=== PATIENT | female | born 1980 | race Caucasian/White ===

== ENCOUNTER 2019-12-21 22:07 | Emergency (ER) | payer SELFPAY ==
[2019-12-21 22:20] VITALS: BP 109/44; PULSE 108; TEMP 97.9; BMI 27.4
--- NOTE | 2019-12-21 22:29 | PDOC ---
History of Present Illness - General Chief Complaint: Pain Stated Complaint: SYNCOPE Time Seen by Provider: 12/21/19 22:28 - History of Present Illness Initial Comments: 12/21/19 23:09 39 y/o F with no significant PMH who presents to the ED due worsening external vaginal pain due to bartholin cyst and nausea. Pt was seen at [facility] and discharged on ciprofloxacin and motrin. This morning when her pain increased she decided to take double of her motrin and cipro in hope to accelerate symptom relief. She denies any F/C or change in urination. She does endorse difficulty with BM due to vaginal pain. Pt explains that she had prior episode in the past often self resolving; however this one episode worsened. NO prior STDs. PSH: 3 C sections Social Hx: active smoker 1-2 cig a day PE: Gen: mild distress CHEST: vesicular breath sounds b/l HEART: RRR no MRG ABDOMEN: +BS, NTND EXTREMITIES: 2+ pulses, no edema genital exam: large fluctuant mass in the left labia majora with surrounding erythema and significant tenderness on light touch Assessment: bartholyn cyst abscess Plan: I&D, with word catheter insertion + 1 dose of bactrim with 7 day course BID on discharge zofran for nausea, tylenol for pain. Past History - Past Medical History Allergies/Adverse Reactions: Allergies Allergy/AdvReac Type Severity Reaction Status Date / Time No Known Allergies Allergy Verified 12/21/19 22:12 Home Medications: Ambulatory Orders Ondansetron [Zofran -] 4 mg PO Q6H PRN #15 tablet 12/22/19 Sulfamethoxazole/Trimethoprim [Bactrim Ds -] 1 tab PO BID #14 tablet 12/22/19 COPD: No - Psycho Social/Smoking Cessation Hx Smoking History: Never smoked Review of Systems - Review of Systems Constitutional: No: Chills, Fever HEENTM: No: Recent change in vision Respiratory: No: Cough, Shortness of Breath Cardiac (ROS): No: Chest Pain, Palpitations ABD/GI: Yes: Nausea, Vomiting : Yes: Pain. No: Burning, Dysuria, Discharge Musculoskeletal: No: Joint Swelling Integumentary: No: Change in Color Neurological: No: Headache Endocrine: No: Change in Weight *Physical Exam - Vital Signs Last Vital Signs Temp Pulse Resp BP Pulse Ox 97.9 F 108 H 18 109/44 L 97 12/21/19 22:08 12/21/19 22:08 12/21/19 22:08 12/21/19 22:08 12/21/19 22:08 - Physical Exam General Appearance: Yes: Nourished, Mild Distress HEENT: positive: EOMI, JONATHON, Normal Voice Neck: positive: Trachea midline, Supple Respiratory/Chest: positive: Lungs Clear, Normal Breath Sounds Cardiovascular: positive: Regular Rhythm, Regular Rate, S1, S2 Female Pelvic Exam: positive: Bartholin mass Gastrointestinal/Abdominal: positive: Normal Bowel Sounds, Soft Rectal Exam: positive: deferred Musculoskeletal: negative: CVA Tenderness Extremity: positive: Normal Capillary Refill Integumentary: positive: Normal Color, Dry, Warm Neurologic: positive: copra processor II-XII NML intact, Fully Oriented, Alert, Normal Mood/ Affect, Motor Strength 5/5. negative: Sensory Deficit Discharge - Discharge Information Problems reviewed: Yes Clinical Impression/Diagnosis: Bartholin's gland abscess Condition: Improved Disposition: HOME - Admission No - Additional Discharge Information Prescriptions: Ondansetron [Zofran -] 4 mg PO Q6H PRN #15 tablet PRN Reason: Nausea And/Or Vomiting Sulfamethoxazole/Trimethoprim [Bactrim Ds -] 1 tab PO BID #14 tablet - Follow up/Referral - Patient Discharge Instructions Patient Printed Discharge Instructions: DI for Bartholin Gland Cyst Additional Instructions: You came into the ED because of non improvement of bartholin cyst despite antibiotics. We drained your cyst/ abscess and gave you pain meds and your symptom improved. Please continue to take bactrim twice a day by mouth for the next 7 days Please take zofran 4mg every 6 hours by mouth as needed If you begin to experience numbness, bleeding, fever/chills, chest pain, worsening genital symptoms please return to the emergency room immediately. - Post Discharge Activity Work/Back to School Note: Back to Work
[2019-12-21] MEDS ORDERED: ACETAMINOPHEN 1000 MG/100 ML VIAL (NON FORMULARY) IVPB ONE (23:08)
[2019-12-21] MEDS ORDERED: ONDANSETRON 4 MG/2 ML VIAL IVPUSH ONE (23:08)
[2019-12-21] MEDS ORDERED: LIDOCAINE HCL 2% (50ML VIAL) SQ ONE ×2 (23:15→23:17)
[2019-12-21] MEDS ORDERED: ACETAMINOPHEN INJECTION 100 ML IVPB ONE (23:21)
[2019-12-21] MEDS ORDERED: LIDOCAINE HCL 2% (20ML MULTI-DOSE VIAL) ONE (23:22)
[2019-12-21] MEDS ORDERED: ONDANSETRON 4 MG/2 ML VIAL ONE (23:22)
[2019-12-22] MEDS ORDERED: SULFAMETHOXAZOLE/TRIMETHOPRIM 800MG/160MG D.S. TABLET PO ONE (00:18)
[2019-12-22] MEDS ORDERED: SULFAMETHOXAZOLE/TRIMETHOPRIM 800MG/160MG D.S. TABLET ONE (00:24)
--- NOTE | 2019-12-22 04:05 | PDOC ---
Attending Attestation - Resident Resident Name: JonasJeremieJessica - ED Attending Attestation I have performed the following: I have examined & evaluated the patient, The case was reviewed & discussed with the resident, I agree w/resident's findings & plan, Exceptions are as noted - HPI HPI: 12/22/19 04:04 See resident HPI - Physicial Exam PE: 12/22/19 04:04 Agree with documented exam - Medical Decision Making 12/22/19 04:04 Bartholin gland cyst I&D, vega catheter, abx dc return for re-eval
== END 2019-12-22 02:01 | disposition home or self-care (01) ==
LOC: JER 22:07
PROC: 0U9L00Z Drainage of Vestibular Gland with Drainage Device, Open Approach (ICD-10-PCS; principal; 2019-12-21)
DX: N75.1 Abscess of Bartholin's gland (principal)
CPT/HCPCS: 87070; 87205; 99284-25; J0131

== ENCOUNTER 2019-12-22 17:01 | Inpatient (IN) | payer SELFPAY ==
[~2019-12-22 17:01] MED LIST: PANTOPRAZOLE SODIUM 40 MG VIAL IVPUSH SCH
[2019-12-22] MEDS ORDERED: ONDANSETRON 4 MG/2 ML VIAL IVPUSH ONE ×2 (17:52→23:10)
[2019-12-22] MEDS ORDERED: SODIUM CHLORIDE 1,000 ML IV STA (17:52)
[2019-12-22] MEDS ORDERED: ONDANSETRON 4 MG/2 ML VIAL ONE ×3 (18:39→23:11)
[2019-12-22 19:14] LABS: BASO % 0.3 % (0-2.0); EOS % 0.3 % (0-4.5); HEMATOCRIT 37.2 % (32.4-45.2); HEMOGLOBIN 12.6 GM/dL (10.7-15.3); LYMPH % 12.5 % (8-40); MCH 28.1 pg (25.7-33.7); MCHC 33.7 g/dl (32.0-36.0); MEAN CELL VOLUME 83.3 fl (80-96); MEAN PLT VOLUME 8.3 fl (7.5-11.1); MONO % 7.3 % (3.8-10.2); NEUT % 79.6 % (42.8-82.8); PLATELET COUNT 337 K/MM3 (134-434); RBC 4.47 M/mm3 (3.60-5.2); RDW 14.6 % (11.6-15.6); WHITE BLOOD COUNT 21.3 K/mm3 (4.0-10.0)
--- NOTE | 2019-12-22 20:14 | PDOC ---
History of Present Illness - General Chief Complaint: Weakness Stated Complaint: DECREASED APPETITE Time Seen by Provider: 12/22/19 17:45 History Source: Patient Exam Limitations: No Limitations Past History - Past Medical History Allergies/Adverse Reactions: Allergies Allergy/AdvReac Type Severity Reaction Status Date / Time No Known Allergies Allergy Verified 12/22/19 17:11 Home Medications: Ambulatory Orders Ondansetron [Zofran -] 4 mg PO Q6H PRN #15 tablet 12/22/19 Sulfamethoxazole/Trimethoprim [Bactrim Ds -] 1 tab PO BID #14 tablet 12/22/19 COPD: No - Psycho Social/Smoking Cessation Hx Smoking History: Current every day smoker Have you smoked in the past 12 months: Yes Number of Cigarettes Smoked Daily: 5 Information on smoking cessation initiated: No Hx Alcohol Use: No Drug/Substance Use Hx: No *Physical Exam - Vital Signs Last Vital Signs Temp Pulse Resp BP Pulse Ox 97.8 F 87 18 110/65 100 12/22/19 17:08 12/22/19 17:08 12/22/19 17:08 12/22/19 17:08 12/22/19 17:08 - Physical Exam General Appearance: No: Apparent Distress Respiratory/Chest: positive: Lungs Clear, Normal Breath Sounds. negative: Respiratory Distress Cardiovascular: positive: Regular Rhythm, Regular Rate, S1, S2. negative: Murmur Gastrointestinal/Abdominal: positive: Normal Bowel Sounds, Soft. negative: Tender, Distended, Guarding, Rebound Neurologic: positive: Alert ED Treatment Course - LABORATORY CBC & Chemistry Diagram: 12/22/19 18:50 12/22/19 18:50 - ADDITIONAL ORDERS Additional order review: Laboratory Results 12/22/19 18:50 Serum , Qual Negative 12/22/19 18:50 RBC 4.47 MCV 83.3 MCHC 33.7 RDW 14.6 MPV 8.3 Neutrophils % 79.6 Lymphocytes % 12.5 Monocytes % 7.3 Eosinophils % 0.3 Basophils % 0.3 - RADIOLOGY Radiology Studies Ordered: Category Date Time Status ABDOMEN & PELVIS CT WITH CONTR [CT] Stat CT Scan 12/22/19 19:41 Ordered - Medications Given in the ED: ED Medications Discontinued Medications Generic Name Dose Route Start Last Admin Trade Name Freq PRN Reason Stop Dose Admin Sodium Chloride 1,000 mls @ 1,000 mls/hr 12/22/19 17:52 12/22/19 18:35 Normal Saline - IV 12/22/19 18:51 1,000 mls/hr ASDIR STA Administration Ondansetron HCl 4 mg 12/22/19 17:52 12/22/19 18:30 Zofran Injection IVPUSH 12/22/19 17:53 4 mg ONCE ONE Administration Medical Decision Making - Medical Decision Making 39-year-old female with no significant past medical history presents for persistent vomiting from yesterday. Patient was seen yesterday in the ED for Bartholin cyst which was drained and Word catheter was placed. Patient was started on Bactrim yesterday as well as given rx for Zofran. Patient has been unable to keep down anything though despite use of the Zofran. Patient was first seen by Mike dorado at [facility] where she was prescribed Cipro. Patient mentions the vomiting started yesterday after she took 2 tablets of Cipro and 2 tablets of Motrin empty stomach. However, has not yet stopped and unable to keep down liquids. Denies fever, sob, cp, diarrhea, urinary sxs. Patient had BM today. Surgical hx: x3 Labs sent and pending Given IVF and Zofran Multiple episodes of vomiting in ED; Consider SBO? D/W Dr. Alexandre - recommends CT A/P 12/22/19 20:11 Abnormal Lab Results 12/22/19 12/22/19 18:50 18:50 WBC 21.3 H Absolute Neuts (auto) 16.9 H Carbon Dioxide 20 L BUN 26.7 H Creatinine 5.1 H Random Glucose 118 H Magnesium 2.5 H AST 46 H Alkaline Phosphatase 119 H Labs notable for marked leukocytosis Patient also noted with elevated BUN and creatinine, low GFR Patient denies any history of any kidney problems in the past States she has not seen a doctor for a few years Mentions she is still making urine CT scan of the abdomen/pelvis was negative for any acute findings We will admit to the hospital for further evaluation 12/22/19 21:33 Discharge - Discharge Information Problems reviewed: Yes Clinical Impression/Diagnosis: Renal insufficiency Condition: Stable - Admission Yes - Follow up/Referral - Patient Discharge Instructions - Post Discharge Activity
[2019-12-22 20:17] LABS: ALBUMIN 3.5 g/dl (3.4-5.0); BILIRUBIN,TOTAL 0.4 mg/dL (0.2-1); BLOOD UREA NITROGEN 26.7 mg/dL (7-18); CALCIUM 9.2 mg/dL (8.5-10.1); CREATININE 5.1 mg/dL (0.55-1.3); MAGNESIUM 2.5 mg/dL (1.8-2.4); POTASSIUM 4.3 mmol/L (3.5-5.1); TOT PROT 7.2 g/dl (6.4-8.2)
[2019-12-22 21:01] LABS: PLATELET ESTIMATE ADEQUATE
[2019-12-22] MEDS ORDERED: PROCHLORPERAZINE INJECTION 10 MG/2 ML VIAL ONE (23:13)
[2019-12-22] MEDS ORDERED: PROCHLORPERAZINE MALEATE 5 MG TABLET PO PRN (23:15)
[2019-12-22] MEDS ORDERED: SODIUM CHLORIDE 0.9% 500 ML INFUS.BAG IV ONE (23:18)
[2019-12-22] MEDS ORDERED: PROCHLORPERAZINE INJECTION 10 MG/2 ML VIAL IVPB SCH ×2 (23:30→23:41)
[2019-12-22] MEDS ORDERED: PANTOPRAZOLE SODIUM 40 MG/100 ML BAG IVPB ONE (23:39)
[2019-12-22] MEDS ORDERED: VANCOMYCIN 1 GM in D5W (PRE-DOCKED) 1,000 MG/250 ML IVPB ONE (23:45)
[2019-12-22] MEDS ORDERED: AMPICILLIN NA/SULBACTAM NA 1.5 GM in SODIUM CHLORIDE 100 ML IVPB SCH (23:45)
[2019-12-22] MEDS: PANTOPRAZOLE SODIUM 40 MG VIAL IVPUSH SCH (23:47)
--- NOTE | 2019-12-22 23:57 | PN ---
Teaching Attending Note Name of Resident: Feliz Minor ATTENDING PHYSICIAN STATEMENT I saw and evaluated the patient. I reviewed the resident's note and discussed the case with the resident. I agree with the resident's findings and plan as documented. SUBJECTIVE: 39-year-old woman with a history of recurrent Bartholin cysts, tobacco and marijuana smoker, presented on 12/20/2019 to [facility] emergency room for left Barthonian cyst/cellulitis/abscess, prescribed Cipro and ibuprofen and was discharged home. Patient reported taking 2 pills of ciprofloxacin and 2 pills of ibuprofen that same day and shortly after developed multiple episodes of nonbloody vomiting. The next day she came to the emergency room in [facility], left Bartholin abscess status post incision and drainage, sent for culture which is pending. Received Bactrim prescription, return to the emergency room on 12/22/2019 due to persistent vomiting. Patient otherwise does not really follow with any doctors, does not take any medications at home.No Drug allergies that she knows of. OBJECTIVE: Last Vital Signs Temp Pulse Resp BP Pulse Ox 97.8 F 87 18 110/65 100 12/22/19 17:08 12/22/19 17:08 12/22/19 17:08 12/22/19 17:08 12/22/19 17:08 Physical exam showed a woman not in any acute distress, however with intractable vomiting, dry mucous membranes, sclera nonicteric with no pallor. Lungs are clear to auscultation bilaterally, cardiovascular exam was remarkable for S1 plus, S2 plus regular rate and rhythm no murmurs. Abdomen was soft, nontender with normal bowel sounds. External vulva examined with Dr. Lyles, left labia majora erythematous, swollen with no visible discharge. Lower extremities nonedematous, no rash on skin noted. Abnormal Lab Results 12/22/19 12/22/19 18:50 18:50 WBC 21.3 H Absolute Neuts (auto) 16.9 H Carbon Dioxide 20 L BUN 26.7 H Creatinine 5.1 H Random Glucose 118 H Magnesium 2.5 H AST 46 H Alkaline Phosphatase [address] of abdomen pelvis without contrast was reviewed. No definite CT findings of acute pathology identified. Cholelithiasis, small nonobstructing right renal calculi. Possible mild diffuse urinary bladder wall Thickening which is at least part due to underdistention. Small umbilical hernia containing fat only. ASSESSMENT AND PLAN: 39-year-old woman with TOMÁS versus CKD. No previous renal parameters to compare to. Suspect possible interstitial nephritis secondary to ciprofloxacin versus Bactrim versus versus NSAID use. May also be component of prerenal azotemia as patient is intravascularly depleted from multiple episodes of vomiting. Currently with intractable vomiting, unable to tolerate p.o. would assess for residual abscess in left labia. Suspect leukocytosis may be secondary to left labia cellulitis versus residual abscess. Leukocytosis may be also be leukemoid reaction to adverse drug reaction versus allergic interstitial nephritis.Mild transaminitis. Admit to [facility] Left labia soft tissue ultrasound to assess for residual abscess Follow-up culture from drainage Trend CBC Avoid nephrotoxins Send UA, urine lites, urine eosinophils, Abdominal ultrasoundassess kidneys and liver I's and O's, daily weights Warm packs to left labia Advise smoking cessation A1c to assess for possible diabetes mellitus especially given positive family history HIV serology IV fluid hydration Compazine IV as needed for nausea or vomiting Heparin subcutaneously for DVT prophylaxis
[2019-12-23] MEDS: SODIUM CHLORIDE 1,000 ML IV SCH
[2019-12-23] MEDS ORDERED: VANCOMYCIN 1 GRAM (PRE-DOCKED) 1,000 MG/250 ML BAG IVPB ONE (00:12)
--- NOTE | 2019-12-23 00:26 | HP ---
CHIEF COMPLAINT: Nausea and Vomiting PCP: None HISTORY OF PRESENT ILLNESS: 39 y/o F, no pmh, no previous physician visits, presented to the ED c/o of nausea and multiple episodes of nbnb vomiting of 1 day duration. Pt reports that she was seen at [facility] 3 days ago for recurrent Bartholins cyst. At [facility] she was discharged on cipro 500 BID and motrin 600. She went home and took 3 doses of ciprofloxacin in hope of clearing her infect and double dose of her motrin as well. She developed nausea and vomiting within minutes until she presented to [facility]. In the ED she was evaluated and treated with Zofran x2, IVF and Abd CT. Her Bartholins cyst was also drained in the ED. Denies f/c/sob/cp/abd pain. ER course was notable for: (1)Abd CT- unremarkable (2)Zofran x2 (3)EKG: Recent Travel: denies PAST MEDICAL HISTORY: STD in the past, treated. Recurrent Bartholins cyst PAST SURGICAL HISTORY: x3, bartholins cyst drainage Social History: Smokin-3 cigs/day, 20 yrs hx Alcohol: denies Drugs: denies Allergies No Known Allergies Allergy (Verified 12/22/19 17:11) HOME MEDICATIONS: Home Medications Medication Instructions Recorded Ondansetron [Zofran -] 4 mg PO Q6H PRN #15 tablet 12/22/19 Sulfamethoxazole/Trimethoprim 1 tab PO BID #14 tablet 12/22/19 [Bactrim Ds -] REVIEW OF SYSTEMS CONSTITUTIONAL: Absent: fever, chills, diaphoresis, generalized weakness, CARDIOVASCULAR: Absent: chest pain, syncope, palpitations, irregular heart rate, RESPIRATORY: Absent: cough, shortness of breath, dyspnea with exertion, orthopnea, wheezing, GASTROINTESTINAL: Admits: nausea, vomiting, Absent: abdominal pain, abdominal distension, diarrhea, constipation, GENITOURINARY: Admits: Vaginal tenderness Absent: dysuria, frequency, urgency, hesitancy, SKIN: Absent: rash, itching, pallor HEMATOLOGIC/IMMUNOLOGIC: Absent: easy bleeding, easy bruising, ns ENDOCRINE: Absent: unexplained weight gain, unexplained weight loss, heat intolerance, cold intolerance NEUROLOGIC: Absent: headache, focal weakness or paresthesias, dizziness, unsteady gait, seizure, PSYCHIATRIC: Absent: anxiety, PHYSICAL EXAMINATION Vital Signs - 24 hr 12/22/19 17:08 Temperature 97.8 F Pulse Rate 87 Respiratory 18 Rate Blood Pressure 110/65 O2 Sat by Pulse 100 Oximetry (%) GENERAL: Awake, alert, and fully oriented, in no acute distress. EYES: Pupils equal, round and reactive to light, extraocular movements intact, sclera anicteric, conjunctiva clear. No lid lag. EARS, NOSE, THROAT: dry mucous membranes. NECK: Normal range of motion, supple without lymphadenopathy, LUNGS: Breath sounds equal, clear to auscultation bilaterally. No wheezes, and no crackles. HEART: Regular rate and rhythm, normal S1 and S2 without murmur, rub or gallop. ABDOMEN: Soft, nontender, not distended, normoactive bowel sounds, no guarding, no rebound, no masses. UPPER EXTREMITIES: 2+ pulses, warm, well-perfused. No peripheral edema. LOWER EXTREMITIES: 2+ pulses, warm, well-perfused. No peripheral edema. Genital: barolins cyst s/p drainage and stitched, tenderness, erythema, no purulent drainage NEUROLOGICAL: Normal speech. Normal gait. SKIN: Warm, dry, normal turgor, Laboratory Results - last 24 hr 12/22/19 12/22/19 12/22/19 18:50 18:50 18:50 WBC 21.3 H RBC 4.47 Hgb 12.6 Hct 37.2 MCV 83.3 MCH 28.1 MCHC 33.7 RDW 14.6 Plt Count 337 MPV 8.3 Absolute Neuts (auto) 16.9 H Total Counted 100 Neutrophils % 79.6 Neutrophils % (Manual) 79.0 Lymphocytes % 12.5 Lymphocytes % (Manual) 14.0 Monocytes % 7.3 Monocytes % (Manual) 7 Eosinophils % 0.3 Basophils % 0.3 Nucleated RBC % 0 Differential Comment Man diff performed Platelet Estimate Adequate Platelet Comment Slide scanned. Sodium 138 Potassium 4.3 Chloride 107 Carbon Dioxide 20 L Anion Gap 11 BUN 26.7 H Creatinine 5.1 H Est GFR (CKD-EPI)AfAm 11.30 Est GFR (CKD-EPI)NonAf 9.75 Random Glucose 118 H Calcium 9.2 Magnesium 2.5 H Total Bilirubin 0.4 AST 46 H ALT 20 Alkaline Phosphatase 119 H Total Protein 7.2 Albumin 3.5 Serum , Qual Negative ASSESSMENT/PLAN: 39 y/o F, no pmh, no previous physician visits, presented to the ED c/o of nausea and multiple episodes of nbnb vomiting of 1 day duration admitted for intractable vomiting #Intractable vomiting likely 2/2 to TOMÁS Cre at 5 Cre clearance 18 Pt started on IVF bolus 1 L Standing IVF at 100 Protonix 40 daily lactic acid Urine lytes, urine sodium, urine osm Clompazine urine eosinophils #Leukocytosis likely 2/2 Bartholins cyst s/p drainage White count elevated no fevers UA and UCx ordered Soft tissue US ordered Unasyn(renal dosing) and Vanc #Elevated ALP Abd US hepatitis panel DVT ppx heparin FEN monitor lytes regular diet IVF at 100 Dispo: IVF, cont to monitor overnight, f/u US Visit type - Emergency Visit Emergency Visit: Yes ED Registration Date: 12/22/19 Care time: The patient presented to the Emergency Department on the above date and was hospitalized for further evaluation of their emergent condition. - New Patient This patient is new to me today: Yes Date on this admission: 01/03/20 - Critical Care Critical Care patient: No ATTENDING PHYSICIAN STATEMENT I saw and evaluated the patient. I reviewed the resident's note and discussed the case with the resident. I agree with the resident's findings and plan as documented. SUBJECTIVE: OBJECTIVE: ASSESSMENT AND PLAN:
[2019-12-23] MEDS ORDERED: HEPARIN NA (PORCINE) 5,000 UNITS/ML 1ML VIAL ONE (06:02)
[2019-12-23] MEDS: HEPARIN NA (PORCINE) 5,000 UNITS/ML 1ML VIAL SQ SCH ×3 (06:06→23:02)
[2019-12-23 07:18] LABS: BASO % 0.4 % (0-2.0); EOS % 1.1 % (0-4.5); HEMATOCRIT 33.3 % (32.4-45.2); HEMOGLOBIN 11.1 GM/dL (10.7-15.3); LYMPH % 12.4 % (8-40); MCH 27.8 pg (25.7-33.7); MCHC 33.2 g/dl (32.0-36.0); MEAN CELL VOLUME 83.8 fl (80-96); MEAN PLT VOLUME 8.5 fl (7.5-11.1); MONO % 7.7 % (3.8-10.2); NEUT % 78.4 % (42.8-82.8); PLATELET COUNT 299 K/MM3 (134-434); RBC 3.98 M/mm3 (3.60-5.2); RDW 14.6 % (11.6-15.6); WHITE BLOOD COUNT 16.4 K/mm3 (4.0-10.0)
[2019-12-23 08:03] LABS: ALBUMIN 3.1 g/dl (3.4-5.0); BILIRUBIN,TOTAL 0.4 mg/dL (0.2-1); CALCIUM 8.4 mg/dL (8.5-10.1); CREATININE 5.3 mg/dL (0.55-1.3); MAGNESIUM 2.5 mg/dL (1.8-2.4); PHOSPHOROUS 5.7 mg/dL (2.5-4.9); POTASSIUM 3.8 mmol/L (3.5-5.1); TOT PROT 6.3 g/dl (6.4-8.2)
[2019-12-23] MEDS: PANTOPRAZOLE SODIUM 40 MG VIAL IVPUSH SCH (10:00)
[2019-12-23] MEDS: AMPICILLIN NA/SULBACTAM NA 3 GM in SODIUM CHLORIDE 100 ML IVPB SCH (10:00)
--- NOTE | 2019-12-23 10:34 | EKG ---
Test Reason : Blood Pressure : / mmHG Vent. Rate : 080 BPM Atrial Rate : 080 BPM P-R Int : 142 ms QRS Dur : 076 ms QT Int : 372 ms P-R-T Axes : -03 067 051 degrees QTc Int : 429 ms NORMAL SINUS RHYTHM NORMAL ECG NO PREVIOUS ECGS AVAILABLE Confirmed by GUNJAN DE LEON MD ([id number]) on 12/23/2019 10:34:03 AM Referred By: Confirmed By:GUNJAN DE LEON MD
--- NOTE | 2019-12-23 14:57 | PN ---
Physical Exam: SUBJECTIVE: Patient seen and examined; nausea somewhat improved. Pending steel cutter, nephro, ID. 10 sys ROS done and negative aside from HPI OBJECTIVE: Vital Signs Period Temp Pulse Resp BP Sys/Issa Pulse Ox Last 24 Hr 97.8 F-98.0 F 73-87 18-20 96-110/63-65 100-100 GENERAL: The patient is awake, alert, and fully oriented, in no acute distress. HEAD: Normal with no signs of trauma. EYES: PERRL, extraocular movements intact, sclera anicteric, conjunctiva clear. No ptosis. ENT: Ears normal, nares patent, oropharynx clear without exudates, moist mucous membranes. NECK: Trachea midline, full range of motion, supple. LUNGS: Breath sounds equal, clear to auscultation bilaterally, no wheezes, no crackles, no accessory muscle use. HEART: Regular rate and rhythm, S1, S2 without murmur, rub or gallop. ABDOMEN: Soft, nontender, nondistended, normoactive bowel sounds, no guarding, no rebound, no hepatosplenomegaly, no masses. EXTREMITIES: 2+ pulses, warm, well-perfused, no edema. NEUROLOGICAL: Cranial nerves II through XII grossly intact. Normal speech, gait not observed. PSYCH: Normal mood, normal affect. SKIN: Warm, dry, normal turgor, no rashes or lesions noted Cyst region warm and tender to palpation Laboratory Results - last 24 hr 12/22/19 12/22/19 12/22/19 18:50 18:50 18:50 WBC 21.3 H RBC 4.47 Hgb 12.6 Hct 37.2 MCV 83.3 MCH 28.1 MCHC 33.7 RDW 14.6 Plt Count 337 MPV 8.3 Absolute Neuts (auto) 16.9 H Total Counted 100 Neutrophils % 79.6 Neutrophils % (Manual) 79.0 Lymphocytes % 12.5 Lymphocytes % (Manual) 14.0 Monocytes % 7.3 Monocytes % (Manual) 7 Eosinophils % 0.3 Basophils % 0.3 Nucleated RBC % 0 Differential Comment Man diff performed Platelet Estimate Adequate Platelet Comment Slide scanned. Sodium 138 Potassium 4.3 Chloride 107 Carbon Dioxide 20 L Anion Gap 11 BUN 26.7 H Creatinine 5.1 H Est GFR (CKD-EPI)AfAm 11.30 Est GFR (CKD-EPI)NonAf 9.75 POC Glucometer Random Glucose 118 H Calcium 9.2 Phosphorus Magnesium 2.5 H Total Bilirubin 0.4 AST 46 H ALT 20 Alkaline Phosphatase 119 H Total Protein 7.2 Albumin 3.5 Serum , Qual Negative Random Vancomycin 12/23/19 12/23/19 12/23/19 01:22 05:35 05:35 WBC 16.4 H RBC 3.98 Hgb 11.1 Hct 33.3 MCV 83.8 MCH 27.8 MCHC 33.2 RDW 14.6 Plt Count 299 MPV 8.5 Absolute Neuts (auto) 12.8 H Total Counted Neutrophils % 78.4 Neutrophils % (Manual) Lymphocytes % 12.4 Lymphocytes % (Manual) Monocytes % 7.7 Monocytes % (Manual) Eosinophils % 1.1 D Basophils % 0.4 Nucleated RBC % 0 Differential Comment Platelet Estimate Platelet Comment Sodium 140 Potassium 3.8 Chloride 111 H Carbon Dioxide 19 L Anion Gap 11 BUN 27.0 H Creatinine 5.3 H Est GFR (CKD-EPI)AfAm 10.79 Est GFR (CKD-EPI)NonAf 9.31 POC Glucometer 147 Random Glucose 95 Calcium 8.4 L Phosphorus 5.7 H Magnesium 2.5 H Total Bilirubin 0.4 AST 33 ALT 18 Alkaline Phosphatase 100 Total Protein 6.3 L Albumin 3.1 L Serum , Qual Random Vancomycin 12/23/19 05:35 WBC RBC Hgb Hct MCV MCH MCHC RDW Plt Count MPV Absolute Neuts (auto) Total Counted Neutrophils % Neutrophils % (Manual) Lymphocytes % Lymphocytes % (Manual) Monocytes % Monocytes % (Manual) Eosinophils % Basophils % Nucleated RBC % Differential Comment Platelet Estimate Platelet Comment Sodium Potassium Chloride Carbon Dioxide Anion Gap BUN Creatinine Est GFR (CKD-EPI)AfAm Est GFR (CKD-EPI)NonAf POC Glucometer Random Glucose Calcium Phosphorus Magnesium Total Bilirubin AST ALT Alkaline Phosphatase Total Protein Albumin Serum , Qual Random Vancomycin 19.8 Active Medications Generic Name Dose Route Start Last Admin Trade Name Freq PRN Reason Stop Dose Admin Heparin Sodium (Porcine) 5,000 unit 12/23/19 06:00 12/23/19 14:25 Heparin - SQ Not Given TID DONITA Sodium Chloride 1,000 mls @ 100 mls/hr 12/22/19 23:30 12/23/19 00:00 Normal Saline - IV Not Given ASDIR DONITA Ampicillin Sodium/Sulbactam 100 mls @ 200 mls/hr 12/23/19 10:00 12/23/19 10: 00 Sodium 3 gm/ Sodium Chloride IVPB 200 mls/hr DAILY DONITA Administration Pantoprazole Sodium 40 mg 12/22/19 23:29 12/23/19 10:00 Protonix Iv IVPUSH 40 mg DAILY DONITA Administration Prochlorperazine Edisylate 5 mg 12/23/19 06:28 Compazine Injection - IVPB Q6H-IV PRN NAUSEA AND/OR VOMITING ASSESSMENT/PLAN: Seen in ER with sepsis 2/2 bartholon cyst. US shows potential component with the underlying abscess formation. ID, steel cutter, and nephro consulted. This is likely causing her vomiting. Pain control with APAP and 1x PRN Ultram dose ordered. Monitor renal fucntion. Problems include: -Sepsis 2/2 labial abscess, micro pending, steel cutter pending, US discussed. Type and cross ordered and INR. Continue currebnt abx and defer ultimate tx to ID and steel cutter -CKD; nephro consult pending -Acute on chronic metabolic acidosis 2/2 CKD -Intractable vomiting; clears and can advance as tolerated with PO protonix ordered. Full Code Visit type - Emergency Visit Emergency Visit: Yes ED Registration Date: 12/22/19 Care time: The patient presented to the Emergency Department on the above date and was hospitalized for further evaluation of their emergent condition. - New Patient This patient is new to me today: No - Critical Care Critical Care patient: No
--- NOTE | 2019-12-23 19:31 | PN ---
Progress Note, Physician History of Present Illness: 39 y.o. female with PMH of recurrent Bartholin's gland cyst and herpes presents to the ER for intractable vomiting. Pt states she first noted the labial lesion 4 days ago and went to [facility] and was discharged home on Cipro and motrin. After taking a double dose of antibiotics she began vomiting numerous times and came to the ER where the cyst was drained/catheter placed and was discharged home on Bactrim. Yesterday she returned due to continuous vomiting. Pt states that she has had Bartholin's gland cysts numerous times in the past (last episode was in March 2019) but they would resolve. In the ER she was noted to have leukocytosis and was in renal failure and was started on empiric IV antibiotics. U/S showed possible abscess developing in the vaginal lip.Today she reports feeling better, denies pain, and has had 3 vomiting episodes. - Current Medication List Current Medications: Active Medications Heparin Sodium (Porcine) (Heparin -) 5,000 unit SQ TID [facility] Last Admin: 12/23/19 14:25 Dose: Not Given Sodium Chloride (Normal Saline -) 1,000 mls @ 100 mls/hr IV ASDIR [facility] Last Admin: 12/23/19 00:00 Dose: Not Given Ampicillin Sodium/Sulbactam (Sodium 3 gm/ Sodium Chloride) 100 mls @ 200 mls/ hr IVPB DAILY [facility] Last Admin: 12/23/19 10:00 Dose: 200 mls/hr Doxycycline Hyclate 100 mg/ (Dextrose) 100 mls @ 100 mls/hr IVPB BID [facility] Pantoprazole Sodium (Protonix Iv) 40 mg IVPUSH DAILY [facility] Last Admin: 12/23/19 10:00 Dose: 40 mg Prochlorperazine Edisylate (Compazine Injection -) 5 mg IVPB Q6H-IV PRN PRN Reason: NAUSEA AND/OR VOMITING - Objective Vital Signs: Vital Signs Temperature 97.1 F L 12/23/19 16:00 Pulse Rate 87 12/23/19 16:00 Respiratory Rate 18 12/23/19 16:00 Blood Pressure 105/51 L 12/23/19 16:00 O2 Sat by Pulse Oximetry (%) 97 12/23/19 16:00 Constitutional: Yes: No Distress, Calm Eyes: Yes: Conjunctiva Clear Cardiovascular: Yes: Regular Rate and Rhythm Respiratory: Yes: CTA Bilaterally Gastrointestinal: Yes: Normal Bowel Sounds, Soft Genitourinary: Yes: WNL, Other (Lt labial induration/mild tenderness, +stitch in place) Extremities: Yes: WNL Integumentary: Yes: WNL Neurological: Yes: Alert, Oriented Labs: CBC, BMP 12/23/19 05:35 12/23/19 05:35 Wound culture : 12/22/19) pending , +[facility] Laboratory Tests 12/22/19 12/22/19 12/22/19 18:50 18:50 18:50 WBC 21.3 H RBC 4.47 Hgb 12.6 Hct 37.2 MCV 83.3 MCH 28.1 MCHC 33.7 RDW 14.6 Plt Count 337 MPV 8.3 Absolute Neuts (auto) 16.9 H Total Counted 100 Neutrophils % 79.6 Neutrophils % (Manual) 79.0 Lymphocytes % 12.5 Lymphocytes % (Manual) 14.0 Monocytes % 7.3 Monocytes % (Manual) 7 Eosinophils % 0.3 Basophils % 0.3 Nucleated RBC % 0 Differential Comment Man diff performed Platelet Estimate Adequate Platelet Comment Slide scanned. Sodium 138 Potassium 4.3 Chloride 107 Carbon Dioxide 20 L Anion Gap 11 BUN 26.7 H Creatinine 5.1 H Est GFR (CKD-EPI)AfAm 11.30 Est GFR (CKD-EPI)NonAf 9.75 POC Glucometer Random Glucose 118 H Calcium 9.2 Phosphorus Magnesium 2.5 H Total Bilirubin 0.4 AST 46 H ALT 20 Alkaline Phosphatase 119 H Total Protein 7.2 Albumin 3.5 Serum , Qual Negative Random Vancomycin 12/23/19 12/23/19 12/23/19 01:22 05:35 05:35 WBC 16.4 H RBC 3.98 Hgb 11.1 Hct 33.3 MCV 83.8 MCH 27.8 MCHC 33.2 RDW 14.6 Plt Count 299 MPV 8.5 Absolute Neuts (auto) 12.8 H Total Counted Neutrophils % 78.4 Neutrophils % (Manual) Lymphocytes % 12.4 Lymphocytes % (Manual) Monocytes % 7.7 Monocytes % (Manual) Eosinophils % 1.1 D Basophils % 0.4 Nucleated RBC % 0 Differential Comment Platelet Estimate Platelet Comment Sodium 140 Potassium 3.8 Chloride 111 H Carbon Dioxide 19 L Anion Gap 11 BUN 27.0 H Creatinine 5.3 H Est GFR (CKD-EPI)AfAm 10.79 Est GFR (CKD-EPI)NonAf 9.31 POC Glucometer 147 Random Glucose 95 Calcium 8.4 L Phosphorus 5.7 H Magnesium 2.5 H Total Bilirubin 0.4 AST 33 ALT 18 Alkaline Phosphatase 100 Total Protein 6.3 L Albumin 3.1 L Serum , Qual Random Vancomycin 12/23/19 05:35 WBC RBC Hgb Hct MCV MCH MCHC RDW Plt Count MPV Absolute Neuts (auto) Total Counted Neutrophils % Neutrophils % (Manual) Lymphocytes % Lymphocytes % (Manual) Monocytes % Monocytes % (Manual) Eosinophils % Basophils % Nucleated RBC % Differential Comment Platelet Estimate Platelet Comment Sodium Potassium Chloride Carbon Dioxide Anion Gap BUN Creatinine Est GFR (CKD-EPI)AfAm Est GFR (CKD-EPI)NonAf POC Glucometer Random Glucose Calcium Phosphorus Magnesium Total Bilirubin AST ALT Alkaline Phosphatase Total Protein Albumin Serum , Qual Random Vancomycin 19.8 - ....Imaging Cat Scan: Report Reviewed Ultrasound: Report Reviewed Problem List - Problems (1) Renal insufficiency Code(s): N28.9 - DISORDER OF KIDNEY AND URETER, UNSPECIFIED (2) Bartholin's gland abscess Code(s): N75.1 - ABSCESS OF BARTHOLIN'S GLAND Assessment/Plan Bartholin's gland abscess s/p 1+D Renal failure (?TOMÁS on CKD) Intractable vomiting -- continue Unasyn, will add Doxycycline for MRSA coverage -- wbc trending down, afebrile, vitals stable - continue monitor -- follow up wound culture results - pending -- hydration as needed, monitor renal function -- Nephrology consult requested -- avoid nephrotoxic medication Will follow Thank you
[2019-12-23] MEDS: PROCHLORPERAZINE INJECTION 10 MG/2 ML VIAL IVPB PRN (20:07)
[2019-12-23] MEDS ORDERED: VANCOMYCIN 1 GM in D5W (PRE-DOCKED) 1,000 MG/250 ML IVPB SCH (22:00)
[2019-12-23] MEDS ORDERED: ACETAMINOPHEN 1000 MG/100 ML VIAL (NON FORMULARY) IVPB ONE (22:48)
[2019-12-24] MEDS: HEPARIN NA (PORCINE) 5,000 UNITS/ML 1ML VIAL SQ SCH ×3 (05:47→21:52)
[2019-12-24] MEDS ORDERED: DEXTROSE 5%-WATER 100 ML IVPB ONE (09:11)
[2019-12-24] MEDS ORDERED: DOXYCYCLINE HYCLATE 100 MG VIAL ONE (09:11)
[2019-12-24] MEDS: PANTOPRAZOLE SODIUM 40 MG VIAL IVPUSH SCH (09:19)
[2019-12-24] MEDS ORDERED: DOXYCYCLINE INJECTION 100 MG in DEXTROSE 5%-WATER 100 ML IVPB SCH (10:00)
[2019-12-24] MEDS: AMPICILLIN NA/SULBACTAM NA 3 GM in SODIUM CHLORIDE 100 ML IVPB SCH (10:49)
--- NOTE | 2019-12-24 11:38 | PN ---
Physical Exam: SUBJECTIVE: No acute events overnight. Pt states shes feeling better. OBJECTIVE: Vital Signs Period Temp Pulse Resp BP Sys/Issa Pulse Ox Last 24 Hr 97.1 F-98.1 F 66-87 18-20 105-109/51-70 97-99 GENERAL: The patient is awake, alert, and fully oriented, in no acute distress. HEAD: Normal with no signs of trauma. LUNGS: Breath sounds equal, clear to auscultation bilaterally, no wheezes, no crackles, no accessory muscle use. HEART: Regular rate and rhythm, S1, S2 without murmur, rub or gallop. ABDOMEN: Soft, nontender, nondistended. EXTREMITIES: 2+ pulses, warm, well-perfused, no edema. SKIN: left bartholin cyst erythematous per chart review Active Medications Generic Name Dose Route Start Last Admin Trade Name Freq PRN Reason Stop Dose Admin Acetaminophen 650 mg 12/24/19 11:37 Tylenol - PO Q6H PRN Fever Or Pain Heparin Sodium (Porcine) 5,000 unit 12/23/19 06:00 12/24/19 05:47 Heparin - SQ Not Given TID [facility] Sodium Chloride 1,000 mls @ 100 mls/hr 12/22/19 23:30 12/23/19 00:00 Normal Saline - IV Not Given ASDIR [facility] Ampicillin Sodium/Sulbactam 100 mls @ 200 mls/hr 12/23/19 10:00 12/24/19 10: 49 Sodium 3 gm/ Sodium Chloride IVPB 200 mls/hr DAILY [facility] Administration Doxycycline Hyclate 100 mg/ 100 mls @ 100 mls/hr 12/24/19 10:00 12/24/19 09: 19 Dextrose IVPB 100 mls/hr BID [facility] Administration Pantoprazole Sodium 40 mg 12/22/19 23:29 12/24/19 09:19 Protonix Iv IVPUSH 40 mg DAILY [facility] Administration Prochlorperazine Edisylate 5 mg 12/23/19 06:28 12/23/19 20:07 Compazine Injection - IVPB 5 mg Q6H-IV PRN Administration NAUSEA AND/OR VOMITING ASSESSMENT/PLAN: 39 y/o F, no pmh, no previous physician visits, presented to the ED c/o of nausea and multiple episodes of nbnb vomiting of 1 day duration admitted for intractable vomiting. #Intractable vomiting 2/2 sepsis from source Cre at 3.3 Cre clearance 18 Pt on NS 100/hr Standing IVF at 100 Protonix 40 daily lactic acid Clompazine for nausea No definite CT findings of acute pathology identified. Cholelithiasis, small non -obstructing right renal calculi. Possible mild diffuse urinary bladder wall thickening which is at least part due to under-distention. Small umbilical hernia containing fat only. #TOMÁS - likely 2/2 Allergic interstitial nephritis - NSAIDS 2 taken and 3 ciprofloxacin tablets taken day before admission. - avoid nsaids, Cr 3.3 today improved - continue NS@100/hr - nephro consulted - urine eosinophils negative - would need renal bx to confirm but will assess renal's recs if steroids need to be initiated. 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 White count downtrending afebrile UA and UCx ordered Soft tissue US showing possible abscess after I&D Unasyn(renal dosing) and doxy for MRSA coverage empirically #Elevated ALP Abd US showing ? abscess on bartholin cyst hepatitis panel negative DVT ppx heparin NS@100/hr, protonix GI ppx Visit type - Emergency Visit Emergency Visit: Yes ED Registration Date: 12/22/19 Care time: The patient presented to the Emergency Department on the above date and was hospitalized for further evaluation of their emergent condition. - New Patient This patient is new to me today: No - Critical Care Critical Care patient: No - Discharge Referral Referred to [facility] Med P.C.: No ATTENDING PHYSICIAN STATEMENT I saw and evaluated the patient. I reviewed the resident's note and discussed the case with the resident. I agree with the resident's findings and plan as documented. SUBJECTIVE: OBJECTIVE: ASSESSMENT AND PLAN:
[2019-12-24] MEDS: ACETAMINOPHEN 325 MG TABLET (FP) PO PRN ×2 (11:51→21:59)
[2019-12-24 12:30] LABS: BASO % 0.7 % (0-2.0); EOS % 1.2 % (0-4.5); HEMATOCRIT 35.1 % (32.4-45.2); LYMPH % 18.5 % (8-40); MCH 28.3 pg (25.7-33.7); MCHC 34.2 g/dl (32.0-36.0); MEAN CELL VOLUME 82.7 fl (80-96); MEAN PLT VOLUME 7.7 fl (7.5-11.1); MONO % 7.3 % (3.8-10.2); NEUT % 72.3 % (42.8-82.8); PLATELET COUNT 335 K/MM3 (134-434); RBC 4.25 M/mm3 (3.60-5.2); RDW 14.2 % (11.6-15.6); WHITE BLOOD COUNT 9.6 K/mm3 (4.0-10.0)
[2019-12-24 12:58] LABS: ALBUMIN 3.3 g/dl (3.4-5.0); BILIRUBIN,TOTAL 0.4 mg/dL (0.2-1); CREATININE 3.3 mg/dL (0.55-1.3); POTASSIUM 3.6 mmol/L (3.5-5.1); TOT PROT 6.6 g/dl (6.4-8.2)
[2019-12-24] MEDS: SODIUM CHLORIDE 1,000 ML IV SCH ×2 (13:13→21:52)
--- NOTE | 2019-12-24 14:59 | CON.OBG ---
Consult Consult Specialty:: BENCH INSPECTOR Reason for Consultation:: Bartholin abscess - History of Present Illness Chief Complaint: Left vulva mass / pain History of Present Illness: 39 y/o Para 3 with 3 previous and h/o recurrent bartholin cyst, presented to the ED c/o of nausea and multiple episodes of vomiting of 1 day duration. Pt reports that she was seen at [facility] 3 days ago for recurrent Bartholins cyst. At [facility] she was discharged on cipro 500 BID and motrin 600. She went home and took 3 doses of ciprofloxacin in hope of clearing her infect and double dose of her motrin as well. She developed nausea and vomiting within minutes until she presented to [facility]. In the ED she was evaluated and treated with Zofran x2, IVF and Abd CT. Her Bartholins cyst was also drained in the ED. ER course was notable for: (1)Abd CT- unremarkable (2)Zofran x2 BENCH INSPECTOR called for evaluation of left bartholin abscess. - History Source History Provided By: Patient Limitations to Obtaining History: No Limitations - Past Medical History ...: No ...Para: 3 - Past Surgical History Past Surgical History: Yes: - Alcohol/Substance Use Hx Alcohol Use: No - Smoking History Smoking history: Current every day smoker Have you smoked in the past 12 months: Yes Aproximately how many cigarettes per day: 5 Home Medications - Allergies Allergies/Adverse Reactions: Allergies Allergy/AdvReac Type Severity Reaction Status Date / Time No Known Allergies Allergy Verified 12/22/19 17:11 - Home Medications Home Medications: Ambulatory Orders NK [No Known Home Medication] 12/23/19 Review of Systems - Review of Systems Constitutional: denies: Chills, Fever Eyes: reports: No Symptoms Cardiovascular: reports: No Symptoms Respiratory: reports: No Symptoms Gastrointestinal: reports: Nausea, Vomiting Genitourinary: reports: Other (Left vulva pain) Breasts: reports: No Symptoms Reported Musculoskeletal: reports: No Symptoms Psychiatric: reports: No Symptoms Pain Intensity: 3 Physical Exam-BENCH INSPECTOR Vital Signs: Vital Signs Temperature 97.7 F 12/24/19 10:00 Pulse Rate 69 12/24/19 10:00 Respiratory Rate 20 12/24/19 10:00 Blood Pressure 107/55 L 12/24/19 10:00 O2 Sat by Pulse Oximetry (%) 98 12/24/19 09:00 Constitutional: No: No Distress Eyes: Yes: Conjunctiva Clear HENT: Yes: Atraumatic Neck: Yes: Supple Cardiovascular: Yes: Regular Rate and Rhythm Respiratory: Yes: Regular Gastrointestinal: Yes: Normal Bowel Sounds Pelvis: Yes: Other (Left bartholin cyst ( Healing )) External Genitalia: Yes: Tender, Other (Left bartholin abscess) Vaginal Exam: Yes: Normal Cervix: Yes: Normal Uterus: Yes: Normal Neurological: Yes: Alert, Oriented ...Motor Strength: WNL Psychiatric: Yes: Alert, Oriented Labs: CBC, BMP 12/24/19 12:17 12/24/19 12:17 Assessment/Plan Left bartholin abscess Continue antibiotic May be discharge home with PO dicloxacillin for 7 days F/U with BENCH INSPECTOR as outpatient
[2019-12-24 16:50] VITALS: BMI 28.5
--- NOTE | 2019-12-24 16:50 | CON.NEP ---
Consult Consult Specialty:: neprology Referred by:: dr covarrubias Reason for Consultation:: renal failure - History of Present Illness Chief Complaint: bartholin gland infection History of Present Illness: pt admitted with barthoiln gland infection referred for eval of advanced kidney failure she went to [facility] for this and was rxd cipro she took a dose of motrin 1200mg for pain then she started having nausea and vomiting for 2 - 3 days was unable to take any fluids s creat was 5.1 then 5.3 today its 3.3 while on IVF she has no history of kidney disease no recent blood tests to compare - Past Medical History ...: No - Past Surgical History Past Surgical History: Yes: - Alcohol/Substance Use Hx Alcohol Use: No - Smoking History Smoking history: Current every day smoker Have you smoked in the past 12 months: Yes Aproximately how many cigarettes per day: 5 Home Medications - Allergies Allergies/Adverse Reactions: Allergies Allergy/AdvReac Type Severity Reaction Status Date / Time No Known Allergies Allergy Verified 12/22/19 17:11 - Home Medications Home Medications: Ambulatory Orders NK [No Known Home Medication] 12/23/19 Nephrology Consult - Height Height: 5 ft 6 in - Weight Weight: 177 lb 2 oz - BMI Body Mass Index (BMI): 28.5 - Lab Results CBC,BMP: CBC, BMP 12/24/19 12:17 12/24/19 12:17 Anion Gap: Anion Gap Anion Gap 8 MMOL/L (8-16) 12/24/19 12:17 - Physical Examination Vital Signs: Vital Signs Temperature 98.3 F 12/24/19 15:09 Pulse Rate 78 12/24/19 15:09 Respiratory Rate 20 12/24/19 15:09 Blood Pressure 110/52 L 12/24/19 15:09 O2 Sat by Pulse Oximetry (%) 98 12/24/19 09:00 Constitutional: Yes: Well Nourished, No Distress, Calm Eyes: Yes: WNL, Conjunctiva Clear, EOM Intact HENT: Yes: WNL, Atraumatic, Normocephalic Neck: Yes: WNL, Supple, Trachea Midline Cardiovascular: Yes: WNL, Regular Rate and Rhythm Respiratory: Yes: WNL, Regular, CTA Bilaterally Gastrointestinal: Yes: WNL, Normal Bowel Sounds Renal/: Yes: WNL Musculoskeletal: Yes: WNL Extremities: Yes: WNL Edema: No Peripheral Pulses WNL: Yes Integumentary: Yes: WNL Neurological: Yes: WNL Psychiatric: Yes: WNL Assessment/Plan acute renal failure multifactorial _ large dose of ibuprofen and dehydration 2/2 n/v renal function is getting better already with IV hydration unclear what her baseline renal function is
--- NOTE | 2019-12-24 17:03 | PN ---
Progress Note, Physician History of Present Illness: Pt states she is feeling better but has had some vomiting today, although improved since yesterday. Denies pain in labial area. Remains afebrile. No other complaints. - Current Medication List Current Medications: Active Medications Acetaminophen (Tylenol -) 650 mg PO Q6H PRN PRN Reason: Fever Or Pain Last Admin: 12/24/19 11:51 Dose: 650 mg Heparin Sodium (Porcine) (Heparin -) 5,000 unit SQ TID [facility] Last Admin: 12/24/19 13:14 Dose: Not Given Sodium Chloride (Normal Saline -) 1,000 mls @ 100 mls/hr IV ASDIR [facility] Last Admin: 12/24/19 13:13 Dose: 100 mls/hr Ampicillin Sodium/Sulbactam (Sodium 3 gm/ Sodium Chloride) 100 mls @ 200 mls/ hr IVPB DAILY [facility] Last Admin: 12/24/19 10:49 Dose: 200 mls/hr Doxycycline Hyclate 100 mg/ (Dextrose) 100 mls @ 100 mls/hr IVPB BID [facility] Last Admin: 12/24/19 09:19 Dose: 100 mls/hr Pantoprazole Sodium (Protonix Iv) 40 mg IVPUSH DAILY [facility] Last Admin: 12/24/19 09:19 Dose: 40 mg Prochlorperazine Edisylate (Compazine Injection -) 5 mg IVPB Q6H-IV PRN PRN Reason: NAUSEA AND/OR VOMITING Last Admin: 12/23/19 20:07 Dose: 5 mg - Objective Vital Signs: Vital Signs Temperature 98.3 F 12/24/19 15:09 Pulse Rate 78 12/24/19 15:09 Respiratory Rate 20 12/24/19 15:09 Blood Pressure 110/52 L 12/24/19 15:09 O2 Sat by Pulse Oximetry (%) 98 12/24/19 09:00 Constitutional: Yes: No Distress, Calm Cardiovascular: Yes: Regular Rate and Rhythm Respiratory: Yes: Regular Gastrointestinal: Yes: Normal Bowel Sounds, Soft Genitourinary: Yes: Other (Lt labia with decreased induration, mild tenderness to touch, no erythema) Integumentary: Yes: WNL Neurological: Yes: Alert, Oriented Labs: CBC, BMP 12/24/19 12:17 12/24/19 12:17 wound culture: corynebacterium sp. Problem List - Problems (1) Renal insufficiency Code(s): N28.9 - DISORDER OF KIDNEY AND URETER, UNSPECIFIED (2) Bartholin's gland abscess Code(s): N75.1 - ABSCESS OF BARTHOLIN'S GLAND Assessment/Plan Bartholin's gland abscess s/p 1+D Renal failure (?TOMÁS on CKD) Intractable vomiting Leukocytosis -- vomiting has improved, but still in small amounts -- leukocytosis resolved, vitals stable -- Nephrology evaluating, renal function improving -- urine eosinophils neg. -- labial wound culture result noted: corynebacterium isolated -- continue Unasyn, d/c Doxycycline -- if vomiting resolves can switch to Augmentin PO adjusted dose for renal impairment -- avoid nephrotoxic medication
[2019-12-24] MEDS: PROCHLORPERAZINE INJECTION 10 MG/2 ML VIAL IVPB PRN (17:13)
[2019-12-24 20:04] LABS: EPI CELLS 8.7 /HPF (0-5/HPF); HYALINE CASTS 4 /lpf (0-8); URINE APPEARANCE CLEAR; URINE BACTERIA 2.6 /hpf (NEGATIVE); URINE BILIRUBIN NEGATIVE (NEGATIVE); URINE COLOR YELLOW; URINE GLUCOSE (UA) NEGATIVE (NEGATIVE); URINE KETONE NEGATIVE (NEGATIVE); URINE LEUK ESTERASE TRACE (NEGATIVE); URINE NITRITE NEGATIVE (NEGATIVE); URINE PROTEIN NEGATIVE (NEGATIVE); URINE RBC 2 /hpf (0-4); URINE UROBILINOGEN 0.2 mg/dL (0.2-1.0); URINE WBC 13 /hpf (0-5)
[2019-12-24] MEDS ORDERED: PT OWN MED DRAWER 7, Y5N ONE (21:12)
[2019-12-24] MEDS: AMPICILLIN NA/SULBACTAM NA 1.5 GM in SODIUM CHLORIDE 100 ML IVPB SCH (21:51)
[2019-12-25] MEDS: SODIUM CHLORIDE 1,000 ML IV SCH ×3 (00:48→21:58)
[2019-12-25] MEDS: HEPARIN NA (PORCINE) 5,000 UNITS/ML 1ML VIAL SQ SCH ×3 (06:44→21:05)
[2019-12-25 08:26] LABS: BASO % 0.8 % (0-2.0); EOS % 2.7 % (0-4.5); HEMATOCRIT 33.9 % (32.4-45.2); HEMOGLOBIN 11.7 GM/dL (10.7-15.3); MCH 28.5 pg (25.7-33.7); MCHC 34.6 g/dl (32.0-36.0); MEAN CELL VOLUME 82.4 fl (80-96); MEAN PLT VOLUME 8.1 fl (7.5-11.1); MONO % 11.2 % (3.8-10.2); NEUT % 58.3 % (42.8-82.8); PLATELET COUNT 337 K/MM3 (134-434); RBC 4.11 M/mm3 (3.60-5.2); RDW 14.1 % (11.6-15.6); WHITE BLOOD COUNT 8.7 K/mm3 (4.0-10.0)
[2019-12-25 08:59] LABS: BILIRUBIN,TOTAL 0.4 mg/dL (0.2-1); BLOOD UREA NITROGEN 13.6 mg/dL (7-18); PHOSPHOROUS 3.8 mg/dL (2.5-4.9); POTASSIUM 3.5 mmol/L (3.5-5.1); TOT PROT 6.5 g/dl (6.4-8.2)
[2019-12-25] MEDS: PANTOPRAZOLE SODIUM 40 MG VIAL IVPUSH SCH (09:38)
[2019-12-25] MEDS: AMPICILLIN NA/SULBACTAM NA 1.5 GM in SODIUM CHLORIDE 100 ML IVPB SCH (10:19)
--- NOTE | 2019-12-25 10:45 | PN ---
Progress Note, Physician History of Present Illness: stable no new issues - Current Medication List Current Medications: Active Medications Acetaminophen (Tylenol -) 650 mg PO Q6H PRN PRN Reason: Fever Or Pain Last Admin: 12/24/19 21:59 Dose: 650 mg Heparin Sodium (Porcine) (Heparin -) 5,000 unit SQ TID [facility] Last Admin: 12/25/19 06:44 Dose: Not Given Sodium Chloride (Normal Saline -) 1,000 mls @ 100 mls/hr IV ASDIR [facility] Last Admin: 12/25/19 10:20 Dose: 100 mls/hr Ampicillin Sodium/Sulbactam (Sodium 1.5 gm/ Sodium Chloride) 100 mls @ 200 mls/ hr IVPB BID [facility] Last Admin: 12/25/19 10:19 Dose: 200 mls/hr Pantoprazole Sodium (Protonix Iv) 40 mg IVPUSH DAILY [facility] Last Admin: 12/25/19 09:38 Dose: 40 mg Prochlorperazine Edisylate (Compazine Injection -) 5 mg IVPB Q6H-IV PRN PRN Reason: NAUSEA AND/OR VOMITING Last Admin: 12/24/19 17:13 Dose: 5 mg - Objective Vital Signs: Vital Signs Temperature 97.9 F 12/25/19 08:53 Pulse Rate 70 12/25/19 08:53 Respiratory Rate 18 12/25/19 08:53 Blood Pressure 130/84 12/25/19 08:53 O2 Sat by Pulse Oximetry (%) 98 12/24/19 21:00 Constitutional: Yes: No Distress, Calm Cardiovascular: Yes: S1, S2 Respiratory: Yes: Regular, CTA Bilaterally Gastrointestinal: Yes: Normal Bowel Sounds, Soft Musculoskeletal: Yes: WNL Extremities: Yes: Other Neurological: Yes: Alert, Oriented Psychiatric: Yes: Alert, Oriented Labs: CBC, BMP 12/25/19 07:30 12/25/19 07:30 Assessment/Plan Problem List - Problems (1) Renal insufficiency Code(s): N28.9 - DISORDER OF KIDNEY AND URETER, UNSPECIFIED (2) Bartholin's gland abscess Code(s): N75.1 - ABSCESS OF BARTHOLIN'S GLAND Assessment/Plan Bartholin's gland abscess s/p 1+D Renal failure (?TOMÁS on CKD) Intractable vomiting Leukocytosis continue current mgmt rest as per the team
[2019-12-25 16:26] LABS: BLOOD UREA NITROGEN 14.6 mg/dL (7-18); CALCIUM 8.5 mg/dL (8.5-10.1); CREATININE 1.8 mg/dL (0.55-1.3); POTASSIUM 3.5 mmol/L (3.5-5.1)
[2019-12-25] MEDS: AMOX TR/POT CLAV 500MG/125MG TABLETS (FP) PO SCH (16:50)
--- NOTE | 2019-12-25 17:07 | PN ---
Physical Exam: SUBJECTIVE: Patient seen and examined. States she would like to go home. No acute events overnight. OBJECTIVE: Vital Signs Period Temp Pulse Resp BP Sys/Issa Pulse Ox Last 24 Hr 97.8 F-98.4 F 68-85 17-18 100-130/56-84 98-98 GENERAL: The patient is awake, alert, and fully oriented, in no acute distress. HEAD: Normal with no signs of trauma. LUNGS: Breath sounds equal, clear to auscultation bilaterally, no wheezes, no crackles, no accessory muscle use. HEART: Regular rate and rhythm, S1, S2 without murmur, rub or gallop. ABDOMEN: Soft, nontender, nondistended. EXTREMITIES: 2+ pulses, warm, well-perfused, no edema. SKIN: left bartholin cyst erythematous per chart review Laboratory Results - last 24 hr 12/24/19 12/24/19 12/25/19 18:00 18:00 06:39 WBC RBC Hgb Hct MCV MCH MCHC RDW Plt Count MPV Absolute Neuts (auto) Neutrophils % Lymphocytes % Monocytes % Eosinophils % Basophils % Nucleated RBC % Sodium Potassium Chloride Carbon Dioxide Anion Gap BUN Creatinine Est GFR (CKD-EPI)AfAm Est GFR (CKD-EPI)NonAf POC Glucometer 97 Random Glucose Calcium Phosphorus Magnesium Total Bilirubin AST ALT Alkaline Phosphatase Total Protein Albumin Urine Color Yellow Urine Appearance Clear Urine pH 5.0 Ur Specific [place] 1.010 Urine Protein Negative Urine Glucose (UA) Negative Urine Ketones Negative Urine Blood Trace Urine Nitrite Negative Urine Bilirubin Negative Urine Urobilinogen 0.2 Ur Leukocyte Esterase Trace Urine WBC (Auto) 13 Urine RBC (Auto) 2 Urine Casts (Auto) 4 U Epithel Cells (Auto) 8.7 Urine Bacteria (Auto) 2.6 Ur Random Sodium 81 12/25/19 12/25/19 12/25/19 07:30 07:30 12:30 WBC 8.7 RBC 4.11 Hgb 11.7 Hct 33.9 MCV 82.4 MCH 28.5 MCHC 34.6 RDW 14.1 Plt Count 337 MPV 8.1 Absolute Neuts (auto) 5.1 Neutrophils % 58.3 Lymphocytes % 27.0 D Monocytes % 11.2 H Eosinophils % 2.7 D Basophils % 0.8 Nucleated RBC % 0 Sodium 140 Potassium 3.5 Chloride 109 H Carbon Dioxide 23 Anion Gap 8 BUN 13.6 Creatinine 2.0 H Est GFR (CKD-EPI)AfAm 35.06 Est GFR (CKD-EPI)NonAf 30.25 POC Glucometer 110 Random Glucose 98 Calcium 9.0 Phosphorus 3.8 Magnesium 2.0 Total Bilirubin 0.4 AST 15 ALT 15 Alkaline Phosphatase 92 Total Protein 6.5 Albumin 3.0 L Urine Color Urine Appearance Urine pH Ur Specific [place] Urine Protein Urine Glucose (UA) Urine Ketones Urine Blood Urine Nitrite Urine Bilirubin Urine Urobilinogen Ur Leukocyte Esterase Urine WBC (Auto) Urine RBC (Auto) Urine Casts (Auto) U Epithel Cells (Auto) Urine Bacteria (Auto) Ur Random Sodium 12/25/19 15:30 WBC RBC Hgb Hct MCV MCH MCHC RDW Plt Count MPV Absolute Neuts (auto) Neutrophils % Lymphocytes % Monocytes % Eosinophils % Basophils % Nucleated RBC % Sodium 140 Potassium 3.5 Chloride 107 Carbon Dioxide 27 Anion Gap 6 L BUN 14.6 Creatinine 1.8 H Est GFR (CKD-EPI)AfAm 39.82 Est GFR (CKD-EPI)NonAf 34.35 POC Glucometer Random Glucose 96 Calcium 8.5 Phosphorus Magnesium Total Bilirubin AST ALT Alkaline Phosphatase Total Protein Albumin Urine Color Urine Appearance Urine pH Ur Specific [place] Urine Protein Urine Glucose (UA) Urine Ketones Urine Blood Urine Nitrite Urine Bilirubin Urine Urobilinogen Ur Leukocyte Esterase Urine WBC (Auto) Urine RBC (Auto) Urine Casts (Auto) U Epithel Cells (Auto) Urine Bacteria (Auto) Ur Random Sodium Active Medications Generic Name Dose Route Start Last Admin Trade Name Freq PRN Reason Stop Dose Admin Acetaminophen 650 mg 12/24/19 11:37 12/24/19 21:59 Tylenol - PO 650 mg Q6H PRN Administration Fever Or Pain Amoxicillin/Clavulanate Potassium 1 tab 12/25/19 17:30 12/25/19 16:50 Augmentin - 500mg Tablet PO 1 tab BID@0800,1730 DONITA Administration Heparin Sodium (Porcine) 5,000 unit 12/23/19 06:00 12/25/19 13:19 Heparin - SQ Not Given TID DONITA Sodium Chloride 1,000 mls @ 100 mls/hr 12/22/19 23:30 12/25/19 10:20 Normal Saline - IV 100 mls/hr ASDIR DONITA Administration Pantoprazole Sodium 40 mg 12/22/19 23:29 12/25/19 09:38 Protonix Iv IVPUSH 40 mg DAILY DONITA Administration Prochlorperazine Edisylate 5 mg 12/23/19 06:28 12/24/19 17:13 Compazine Injection - IVPB 5 mg Q6H-IV PRN Administration NAUSEA AND/OR VOMITING ASSESSMENT/PLAN: 39 y/o F, no pmh, no previous physician visits, presented to the ED c/o of nausea and multiple episodes of nbnb vomiting of 1 day duration admitted for intractable vomiting. #Intractable vomiting 2/2 sepsis from source Cre at 3.3 Cre clearance 18 Pt on NS 100/hr Standing IVF at 100 to help TOMÁS Protonix 40 daily lactic acid Clompazine for nausea No definite CT findings of acute pathology identified. Cholelithiasis, small non -obstructing right renal calculi. Possible mild diffuse urinary bladder wall thickening which is at least part due to under-distention. Small umbilical hernia containing fat only. #TOMÁS - likely 2/2 Acute tubular necrosis, +casts on UA - NSAIDS 2 taken and 3 ciprofloxacin tablets taken day before admission. - avoid nsaids, Cr 3.3-> 1.8 today improved, will dc in AM if normal creatinine. - continue NS@100/hr - nephro consulted - urine eosinophils negative - would need renal bx to confirm but will assess renal's recs if steroids need to be initiated. #Leukocytosis likely 2/2 left Bartholins cyst vs abscess s/p drainage, [employer] eval stating dicloxacillin X 10 days and dc home from their standpoint. White count downtrending afebrile UA and UCx ordered Soft tissue US showing possible abscess after I&D Unasyn discontinued switched to augmentin PO and will continue when pt is discharged. #Elevated ALP Abd US showing ? abscess on bartholin cyst hepatitis panel negative DVT ppx heparin NS@100/hr, protonix GI ppx Dipso: DC in AM with close [employer] f/u if bmp cr normalized. Visit type - Emergency Visit Emergency Visit: Yes ED Registration Date: 12/22/19 Care time: The patient presented to the Emergency Department on the above date and was hospitalized for further evaluation of their emergent condition. - New Patient This patient is new to me today: No - Critical Care Critical Care patient: No - Discharge Referral Referred to [facility] Med P.C[facility] No ATTENDING PHYSICIAN STATEMENT I saw and evaluated the patient. I reviewed the resident's note and discussed the case with the resident. I agree with the resident's findings and plan as documented. SUBJECTIVE: OBJECTIVE: ASSESSMENT AND PLAN:
--- NOTE | 2019-12-25 17:59 | PN ---
Teaching Attending Note Name of Resident: Giovanni Scott ATTENDING PHYSICIAN STATEMENT I saw and evaluated the patient. I reviewed the resident's note and discussed the case with the resident. I agree with the resident's findings and plan as documented. SUBJECTIVE: Patient has no complaints. OBJECTIVE: Vital Signs Period Temp Pulse Resp BP Sys/Issa Pulse Ox Last 24 Hr 97.8 F-98.4 F 68-85 17-18 100-130/56-84 98-98 GENERAL: No distress HEART: S1S2, RRR LUNGS: Clear ABDOMEN: Soft, non-tender, non-distended, normal BS EXTREMITIES: No edema Laboratory Results - last 24 hr 12/24/19 12/24/19 12/25/19 18:00 18:00 06:39 WBC RBC Hgb Hct MCV MCH MCHC RDW Plt Count MPV Absolute Neuts (auto) Neutrophils % Lymphocytes % Monocytes % Eosinophils % Basophils % Nucleated RBC % Sodium Potassium Chloride Carbon Dioxide Anion Gap BUN Creatinine Est GFR (CKD-EPI)AfAm Est GFR (CKD-EPI)NonAf POC Glucometer 97 Random Glucose Calcium Phosphorus Magnesium Total Bilirubin AST ALT Alkaline Phosphatase Total Protein Albumin Urine Color Yellow Urine Appearance Clear Urine pH 5.0 Ur Specific [place] 1.010 Urine Protein Negative Urine Glucose (UA) Negative Urine Ketones Negative Urine Blood Trace Urine Nitrite Negative Urine Bilirubin Negative Urine Urobilinogen 0.2 Ur Leukocyte Esterase Trace Urine WBC (Auto) 13 Urine RBC (Auto) 2 Urine Casts (Auto) 4 U Epithel Cells (Auto) 8.7 Urine Bacteria (Auto) 2.6 Ur Random Sodium 81 12/25/19 12/25/19 12/25/19 07:30 07:30 12:30 WBC 8.7 RBC 4.11 Hgb 11.7 Hct 33.9 MCV 82.4 MCH 28.5 MCHC 34.6 RDW 14.1 Plt Count 337 MPV 8.1 Absolute Neuts (auto) 5.1 Neutrophils % 58.3 Lymphocytes % 27.0 D Monocytes % 11.2 H Eosinophils % 2.7 D Basophils % 0.8 Nucleated RBC % 0 Sodium 140 Potassium 3.5 Chloride 109 H Carbon Dioxide 23 Anion Gap 8 BUN 13.6 Creatinine 2.0 H Est GFR (CKD-EPI)AfAm 35.06 Est GFR (CKD-EPI)NonAf 30.25 POC Glucometer 110 Random Glucose 98 Calcium 9.0 Phosphorus 3.8 Magnesium 2.0 Total Bilirubin 0.4 AST 15 ALT 15 Alkaline Phosphatase 92 Total Protein 6.5 Albumin 3.0 L Urine Color Urine Appearance Urine pH Ur Specific [place] Urine Protein Urine Glucose (UA) Urine Ketones Urine Blood Urine Nitrite Urine Bilirubin Urine Urobilinogen Ur Leukocyte Esterase Urine WBC (Auto) Urine RBC (Auto) Urine Casts (Auto) U Epithel Cells (Auto) Urine Bacteria (Auto) Ur Random Sodium 12/25/19 15:30 WBC RBC Hgb Hct MCV MCH MCHC RDW Plt Count MPV Absolute Neuts (auto) Neutrophils % Lymphocytes % Monocytes % Eosinophils % Basophils % Nucleated RBC % Sodium 140 Potassium 3.5 Chloride 107 Carbon Dioxide 27 Anion Gap 6 L BUN 14.6 Creatinine 1.8 H Est GFR (CKD-EPI)AfAm 39.82 Est GFR (CKD-EPI)NonAf 34.35 POC Glucometer Random Glucose 96 Calcium 8.5 Phosphorus Magnesium Total Bilirubin AST ALT Alkaline Phosphatase Total Protein Albumin Urine Color Urine Appearance Urine pH Ur Specific [place] Urine Protein Urine Glucose (UA) Urine Ketones Urine Blood Urine Nitrite Urine Bilirubin Urine Urobilinogen Ur Leukocyte Esterase Urine WBC (Auto) Urine RBC (Auto) Urine Casts (Auto) U Epithel Cells (Auto) Urine Bacteria (Auto) Ur Random Sodium Current Medications Generic Name Dose Route Start Last Admin Trade Name Freq PRN Reason Stop Dose Admin Acetaminophen 650 mg 12/24/19 11:37 12/24/19 21:59 Tylenol - PO 650 mg Q6H PRN Administration Fever Or Pain Amoxicillin/Clavulanate Potassium 1 tab 12/25/19 17:30 12/25/19 16:50 Augmentin - 500mg Tablet PO 1 tab BID@0800,1730 DONITA Administration Heparin Sodium (Porcine) 5,000 unit 12/23/19 06:00 12/25/19 13:19 Heparin - SQ Not Given TID DONITA Sodium Chloride 1,000 mls @ 100 mls/hr 12/22/19 23:30 12/25/19 10:20 Normal Saline - IV 100 mls/hr ASDIR DONITA Administration Pantoprazole Sodium 40 mg 12/22/19 23:29 12/25/19 09:38 Protonix Iv IVPUSH 40 mg DAILY DONITA Administration Prochlorperazine Edisylate 5 mg 12/23/19 06:28 12/24/19 17:13 Compazine Injection - IVPB 5 mg Q6H-IV PRN Administration NAUSEA AND/OR VOMITING ASSESSMENT AND PLAN: This is a 39 year old woman with no medical history who presented to the ED with nausea and vomiting. 1. Sepsis (leukocytosis, tachycardia) secondary to Bartholin's gland abscess - s/p recent I&D - Unasyn changed to Augmentin 2. Acute kidney injury - Likely ATN secondary to Cipro, NSAIDs - Improving with IV fluid 3. Vomiting - Resolved
--- NOTE | 2019-12-25 19:07 | PN ---
Progress Note, Physician History of Present Illness: Pt seen and examined at bedside. She is awake and alert. She says that she feels better. - Current Medication List Current Medications: Active Medications Acetaminophen (Tylenol -) 650 mg PO Q6H PRN PRN Reason: Fever Or Pain Last Admin: 12/24/19 21:59 Dose: 650 mg Amoxicillin/Clavulanate Potassium (Augmentin - 500mg Tablet) 1 tab PO BID@0800, 1730 [facility] Last Admin: 12/25/19 16:50 Dose: 1 tab Heparin Sodium (Porcine) (Heparin -) 5,000 unit SQ TID [facility] Last Admin: 12/25/19 13:19 Dose: Not Given Sodium Chloride (Normal Saline -) 1,000 mls @ 100 mls/hr IV ASDIR [facility] Last Admin: 12/25/19 10:20 Dose: 100 mls/hr Pantoprazole Sodium (Protonix Iv) 40 mg IVPUSH DAILY [facility] Last Admin: 12/25/19 09:38 Dose: 40 mg Prochlorperazine Edisylate (Compazine Injection -) 5 mg IVPB Q6H-IV PRN PRN Reason: NAUSEA AND/OR VOMITING Last Admin: 12/24/19 17:13 Dose: 5 mg - Objective Vital Signs: Vital Signs Temperature 98.3 F 12/25/19 18:00 Pulse Rate 77 12/25/19 18:00 Respiratory Rate 19 12/25/19 18:00 Blood Pressure 122/71 12/25/19 18:00 O2 Sat by Pulse Oximetry (%) 98 12/25/19 09:00 Constitutional: Yes: Calm Eyes: Yes: Conjunctiva Clear HENT: Yes: Atraumatic Neck: Yes: Supple Cardiovascular: Yes: S1, S2 Respiratory: Yes: CTA Bilaterally Gastrointestinal: Yes: Normal Bowel Sounds, Soft Musculoskeletal: Yes: WNL Edema: No Integumentary: Yes: WNL Neurological: Yes: Oriented Psychiatric: Yes: Oriented Labs: CBC, BMP 12/25/19 07:30 12/25/19 15:30 Problem List - Problems (1) TOMÁS (acute kidney injury) Code(s): N17.9 - ACUTE KIDNEY FAILURE, UNSPECIFIED (2) Bartholin's gland abscess Code(s): N75.1 - ABSCESS OF BARTHOLIN'S GLAND Assessment/Plan Current Medications Generic Name Dose Route Start Last Admin Trade Name Freq PRN Reason Stop Dose Admin Acetaminophen 650 mg 12/24/19 11:37 12/24/19 21:59 Tylenol - PO 650 mg Q6H PRN Administration Fever Or Pain Amoxicillin/Clavulanate Potassium 1 tab 12/25/19 17:30 12/25/19 16:50 Augmentin - 500mg Tablet PO 1 tab BID@0800,1730 DONITA Administration Heparin Sodium (Porcine) 5,000 unit 12/23/19 06:00 12/25/19 13:19 Heparin - SQ Not Given TID [facility] Sodium Chloride 1,000 mls @ 100 mls/hr 12/22/19 23:30 12/25/19 10:20 Normal Saline - IV 100 mls/hr ASDIR DONITA Administration Pantoprazole Sodium 40 mg 12/22/19 23:29 12/25/19 09:38 Protonix Iv IVPUSH 40 mg DAILY DONITA Administration Prochlorperazine Edisylate 5 mg 12/23/19 06:28 12/24/19 17:13 Compazine Injection - IVPB 5 mg Q6H-IV PRN Administration NAUSEA AND/OR VOMITING Impression TOMÁS Bartholin's gland abscess s/p 1+D vomiting Leukocytosis Plan - renal function improving - cont fluids - repeat labs in am - repeat ua - avoid nsaids
[2019-12-25 20:15] LABS: HEP B CORE AB, TOT Negative (Negative)
[2019-12-26] MEDS: HEPARIN NA (PORCINE) 5,000 UNITS/ML 1ML VIAL SQ SCH ×2 (05:42→13:53)
[2019-12-26 07:17] LABS: BASO % 0.9 % (0-2.0); EOS % 2.5 % (0-4.5); MCH 28.1 pg (25.7-33.7); MCHC 34.3 g/dl (32.0-36.0); MEAN CELL VOLUME 81.9 fl (80-96); MEAN PLT VOLUME 7.8 fl (7.5-11.1); MONO % 12.2 % (3.8-10.2); NEUT % 55.4 % (42.8-82.8); PLATELET COUNT 329 K/MM3 (134-434); RBC 4.28 M/mm3 (3.60-5.2); RDW 14.4 % (11.6-15.6); WHITE BLOOD COUNT 8.8 K/mm3 (4.0-10.0)
[2019-12-26 07:55] LABS: ALBUMIN 3.1 g/dl (3.4-5.0); BILIRUBIN,TOTAL 0.4 mg/dL (0.2-1); BLOOD UREA NITROGEN 11.1 mg/dL (7-18); CALCIUM 8.4 mg/dL (8.5-10.1); CREATININE 1.4 mg/dL (0.55-1.3); POTASSIUM 3.4 mmol/L (3.5-5.1); TOT PROT 6.5 g/dl (6.4-8.2)
[2019-12-26] MEDS ORDERED: SODIUM CHLORIDE 1,000 ML IV SCH (08:46)
[2019-12-26] MEDS ORDERED: POTASSIUM CHLORIDE TABS 20 MEQ TABLET.ER (FP) PO ONE (08:46)
[2019-12-26] MEDS: AMOX TR/POT CLAV 500MG/125MG TABLETS (FP) PO SCH (08:53)
[2019-12-26] MEDS: PANTOPRAZOLE SODIUM 40 MG VIAL IVPUSH SCH (09:35)
--- NOTE | 2019-12-26 12:09 | PN ---
Progress Note, Physician History of Present Illness: stable no new issues - Current Medication List Current Medications: Active Medications Acetaminophen (Tylenol -) 650 mg PO Q6H PRN PRN Reason: Fever Or Pain Last Admin: 12/24/19 21:59 Dose: 650 mg Amoxicillin/Clavulanate Potassium (Augmentin - 500mg Tablet) 1 tab PO BID@0800, 1730 [facility] Last Admin: 12/26/19 08:53 Dose: 1 tab Heparin Sodium (Porcine) (Heparin -) 5,000 unit SQ TID [facility] Last Admin: 12/26/19 05:42 Dose: Not Given Sodium Chloride (Normal Saline -) 1,000 mls @ 125 mls/hr IV ASDIR [facility] Last Admin: 12/26/19 09:27 Dose: 125 mls/hr Pantoprazole Sodium (Protonix Iv) 40 mg IVPUSH DAILY [facility] Last Admin: 12/26/19 09:35 Dose: 40 mg Prochlorperazine Edisylate (Compazine Injection -) 5 mg IVPB Q6H-IV PRN PRN Reason: NAUSEA AND/OR VOMITING Last Admin: 12/24/19 17:13 Dose: 5 mg - Objective Vital Signs: Vital Signs Temperature 98.3 F 12/26/19 08:15 Pulse Rate 69 12/26/19 08:15 Respiratory Rate 18 12/26/19 08:15 Blood Pressure 138/55 L 12/26/19 08:15 O2 Sat by Pulse Oximetry (%) 98 12/25/19 21:00 Constitutional: Yes: No Distress, Calm Cardiovascular: Yes: S1, S2 Respiratory: Yes: Regular, CTA Bilaterally Gastrointestinal: Yes: Normal Bowel Sounds, Soft Musculoskeletal: Yes: WNL Extremities: Yes: WNL Neurological: Yes: Alert, Oriented Labs: CBC, BMP 12/26/19 06:35 12/26/19 06:35 Assessment/Plan Problem List - Problems (1) Renal insufficiency Code(s): N28.9 - DISORDER OF KIDNEY AND URETER, UNSPECIFIED (2) Bartholin's gland abscess Code(s): N75.1 - ABSCESS OF BARTHOLIN'S GLAND Assessment/Plan Bartholin's gland abscess s/p 1+D Renal failure (?TOMÁS on CKD) Intractable vomiting Leukocytosis continue current mgmt rest as per the team can stop abx
--- NOTE | 2019-12-26 13:47 | DS ---
Physical Exam: SUBJECTIVE: Patient seen and examined. No acute events stating she wants to go home. OBJECTIVE: Vital Signs Period Temp Pulse Resp BP Sys/Issa Pulse Ox Last 24 Hr 98.1 F-98.4 F 69-85 18-19 102-138/55-71 98-98 PHYSICAL EXAM GENERAL: The patient is awake, alert, and fully oriented, in no acute distress. LUNGS: Breath sounds equal, clear to auscultation bilaterally, no wheezes, no crackles, no accessory muscle use. HEART: Regular rate and rhythm, S1, S2 without murmur, rub or gallop. ABDOMEN: Soft, nontender, nondistended, normoactive bowel sounds. EXTREMITIES: 2+ pulses, warm, well-perfused, no edema. LABS Laboratory Results - last 24 hr 12/23/19 12/25/19 12/25/19 11:20 15:30 17:57 WBC RBC Hgb Hct MCV MCH MCHC RDW Plt Count MPV Absolute Neuts (auto) Neutrophils % Lymphocytes % Monocytes % Eosinophils % Basophils % Nucleated RBC % Sodium 140 Potassium 3.5 Chloride 107 Carbon Dioxide 27 Anion Gap 6 L BUN 14.6 Creatinine 1.8 H Est GFR (CKD-EPI)AfAm 39.82 Est GFR (CKD-EPI)NonAf 34.35 POC Glucometer 97 Random Glucose 96 Calcium 8.5 Total Bilirubin AST ALT Alkaline Phosphatase Total Protein Albumin Hep A IgM Ab Confirm Negative Hepatitis A Ab Total Negative Hep Bs Antigen Negative Hep Bs Antibody Non reactive Hep B Core Total Ab Negative Hep B Core IgM Ab Negative Hepatitis Be Antibody Negative Hepatitis Be Antigen Negative 12/25/19 12/26/19 12/26/19 21:06 06:35 06:35 WBC 8.8 RBC 4.28 Hgb 12.0 Hct 35.0 MCV 81.9 MCH 28.1 MCHC 34.3 RDW 14.4 Plt Count 329 MPV 7.8 Absolute Neuts (auto) 4.9 Neutrophils % 55.4 Lymphocytes % 29.0 Monocytes % 12.2 H Eosinophils % 2.5 Basophils % 0.9 Nucleated RBC % 0 Sodium 140 Potassium 3.4 L Chloride 108 H Carbon Dioxide 25 Anion Gap 7 L BUN 11.1 Creatinine 1.4 H Est GFR (CKD-EPI)AfAm 53.95 Est GFR (CKD-EPI)NonAf 46.55 POC Glucometer 119 Random Glucose 94 Calcium 8.4 L Total Bilirubin 0.4 AST 15 ALT 16 Alkaline Phosphatase 88 Total Protein 6.5 Albumin 3.1 L Hep A IgM Ab Confirm Hepatitis A Ab Total Hep Bs Antigen Hep Bs Antibody Hep B Core Total Ab Hep B Core IgM Ab Hepatitis Be Antibody Hepatitis Be Antigen 12/26/19 12/26/19 06:38 12:17 WBC RBC Hgb Hct MCV MCH MCHC RDW Plt Count MPV Absolute Neuts (auto) Neutrophils % Lymphocytes % Monocytes % Eosinophils % Basophils % Nucleated RBC % Sodium Potassium Chloride Carbon Dioxide Anion Gap BUN Creatinine Est GFR (CKD-EPI)AfAm Est GFR (CKD-EPI)NonAf POC Glucometer 100 100 Random Glucose Calcium Total Bilirubin AST ALT Alkaline Phosphatase Total Protein Albumin Hep A IgM Ab Confirm Hepatitis A Ab Total Hep Bs Antigen Hep Bs Antibody Hep B Core Total Ab Hep B Core IgM Ab Hepatitis Be Antibody Hepatitis Be Antigen HOSPITAL COURSE: Date of Admission:12/22/19 Images: No definite CT findings of acute pathology identified. Cholelithiasis, small non -obstructing right renal calculi. Possible mild diffuse urinary bladder wall thickening which is at least part due to under-distention. Small umbilical hernia containing fat only This is a 39 y/o F, no pmh, no previous physician visits, who was admitted for intractable vomiting. She was s/p multiple I&D's of left bartholin cyst once at ED here and another time by OBGYN. She was sent home on bactrim, cipro, and nsaids. Pt endorses to taking 3 cipros and 2 800 mg ibuprofens for the pain, stating she thought it would help get rid of the infection quicker. Pt presented with a CR of >5 and likely this was ATN given casts in UA. Urine eosinophils negative. No hx of CKD. Pt seen by Dr. Coulter and improved with 100-125cc LR/hr. Pt sent home with Cr of 1.4 and encouraged PO intake. Pt will follow up with renal, PCP, and FOREIGN AGENT for assesment of bartolin cyst. Pt stated she was seen by FOREIGN AGENT yesterday and they said the stitches will dissolve on their own and she need not follow up for that but we spoe with patient to have her follow up if any new issues arise and to return to the ER if she develops fever or pain at that site, or bleeding. Date of Discharge: 12/26/19 Minutes to complete discharge: 35 Discharge Summary Problems reviewed: Yes Reason For Visit: RENAL INSUFFICIENCY Condition: Improved - Instructions Diet, Activity, Other Instructions: You were seen in the hospital for complaints of nausea and vomiting. You were found to have a bartholin cyst abscess and had it drained while you were in the hospital. You were evaluated by the infectious disease doctor and given IV antibiotics to treat your infection. Blood work showed that you had abnormal kidney function likely due to your recent outpatient antibiotics and NSAID use. As a result, you were evaluated by the kidney doctor with recommendation to give IV fluid. During your hospital stay, your symptoms and kidney function improved. You are now stable for discharge home. Medications Please START taking Augmentin 500 mg twice a day for 4 more days. Your last dose will be on 2019. Recommendations You should continue your home medications as prescribed. PLEASE AVOID NSAIDS THIS CAN WORSEN YOUR KIDNEY FUNCTION. Please increase your oral fluid intake after you leave. Follow Up You should follow up with your primary care doctor in 1 week. If you do not have one, you may make an appointment [facility] residency clinic. You should follow up with your OBGYN doctor after you are discharged within 1 week to evaluate your abscess. The stitches that have been placed by the OBGYN will dissolve on its own per [employer]EIGN AGENT. 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 You will need repeat blood work (BMP) to make sure your kidney function remains stable. You should return to the ER if you have any worsening of your current symptoms or: chest pain, shortness of breath, abdominal pain, bowel/bladder complaints, weakness. Referrals: [facility] [place] [facility] [place] [Provider Group] - 1 Week Deepthi Brennan MD [Staff Physician] - 1 Week Roger Coulter MD [Staff Physician] - 1 Week Giovanni Scott RES [Resident] - 1 Week Disposition: HOME - Home Medications Comprehensive Discharge Medication List: Ambulatory Orders Amox-Tr/K Cl [Augmentin 500-125mg Tablet -] 1 tab PO BID@0800,1730 #9 tablet This patient is new to me today: No Emergency Visit: Yes ED Registration Date: 12/22/19 Care time: The patient presented to the Emergency Department on the above date and was hospitalized for further evaluation of their emergent condition. Critical Care patient: No - Discharge Referral Referred to [facility] No ATTENDING PHYSICIAN STATEMENT I saw and evaluated the patient. I reviewed the resident's note and discussed the case with the resident. I agree with the resident's findings and plan as documented. SUBJECTIVE: OBJECTIVE: ASSESSMENT AND PLAN:
[2019-12-26 13:49] VITALS: BP 124/46; PULSE 92; TEMP 98
--- NOTE | 2019-12-26 14:19 | PN ---
Progress Note, Physician History of Present Illness: Pt seen and examined at bedside. She is awake and alert. She says she feel much better. - Objective Vital Signs: Vital Signs Temperature 98.0 F 12/26/19 13:48 Pulse Rate 92 H 12/26/19 13:48 Respiratory Rate 18 12/26/19 13:48 Blood Pressure 124/46 L 12/26/19 13:48 O2 Sat by Pulse Oximetry (%) 98 12/26/19 09:00 Constitutional: Yes: Calm Eyes: Yes: Conjunctiva Clear HENT: Yes: Atraumatic Neck: Yes: Supple Cardiovascular: Yes: S1, S2 Respiratory: Yes: CTA Bilaterally Gastrointestinal: Yes: Normal Bowel Sounds, Soft Genitourinary: Yes: WNL Musculoskeletal: Yes: WNL Edema: No Integumentary: Yes: WNL Neurological: Yes: Oriented Psychiatric: Yes: Oriented Labs: CBC, BMP 12/26/19 06:35 12/26/19 06:35 Problem List - Problems (1) TOMÁS (acute kidney injury) Code(s): N17.9 - ACUTE KIDNEY FAILURE, UNSPECIFIED (2) Bartholin's gland abscess Code(s): N75.1 - ABSCESS OF BARTHOLIN'S GLAND Assessment/Plan Laboratory Tests 12/22/19 12/24/19 00:01 18:00 Urine Protein Negative Urine Blood Trace Urine Eosinophils None seen Impression TOMÁS Bartholin's gland abscess s/p 1+D vomiting Leukocytosis Plan - 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
--- NOTE | 2019-12-26 16:33 | PN ---
Teaching Attending Note Name of Resident: Giovanni Scott ATTENDING PHYSICIAN STATEMENT I saw and evaluated the patient. I reviewed the resident's note and discussed the case with the resident. I agree with the resident's findings and plan as documented. SUBJECTIVE: Feeling much improved. Pain negligible. No fever/chills. OBJECTIVE: Afebrile, Hemodynamically Stable. Last Vital Signs Temp Pulse Resp BP Pulse Ox 98.0 F 92 H 18 124/46 L 98 12/26/19 13:48 12/26/19 13:48 12/26/19 13:48 12/26/19 13:48 12/26/19 09:00 HEENT: Atraumatic, normocephalic. HEART: S1, S2, RRR LUNGS: Clear to auscultation ABDOMEN: Soft, non-tender, non-distended, normal BS EXTREMITIES: No calf tenderness. Laboratory Results - last 24 hr 12/23/19 12/25/19 12/25/19 11:20 17:57 21:06 WBC RBC Hgb Hct MCV MCH MCHC RDW Plt Count MPV Absolute Neuts (auto) Neutrophils % Lymphocytes % Monocytes % Eosinophils % Basophils % Nucleated RBC % Sodium Potassium Chloride Carbon Dioxide Anion Gap BUN Creatinine Est GFR (CKD-EPI)AfAm Est GFR (CKD-EPI)NonAf POC Glucometer 97 119 Random Glucose Calcium Total Bilirubin AST ALT Alkaline Phosphatase Total Protein Albumin Hep A IgM Ab Confirm Negative Hepatitis A Ab Total Negative Hep Bs Antigen Negative Hep Bs Antibody Non reactive Hep B Core Total Ab Negative Hep B Core IgM Ab Negative Hepatitis Be Antibody Negative Hepatitis Be Antigen Negative 12/26/19 12/26/19 12/26/19 06:35 06:35 06:38 WBC 8.8 RBC 4.28 Hgb 12.0 Hct 35.0 MCV 81.9 MCH 28.1 MCHC 34.3 RDW 14.4 Plt Count 329 MPV 7.8 Absolute Neuts (auto) 4.9 Neutrophils % 55.4 Lymphocytes % 29.0 Monocytes % 12.2 H Eosinophils % 2.5 Basophils % 0.9 Nucleated RBC % 0 Sodium 140 Potassium 3.4 L Chloride 108 H Carbon Dioxide 25 Anion Gap 7 L BUN 11.1 Creatinine 1.4 H Est GFR (CKD-EPI)AfAm 53.95 Est GFR (CKD-EPI)NonAf 46.55 POC Glucometer 100 Random Glucose 94 Calcium 8.4 L Total Bilirubin 0.4 AST 15 ALT 16 Alkaline Phosphatase 88 Total Protein 6.5 Albumin 3.1 L Hep A IgM Ab Confirm Hepatitis A Ab Total Hep Bs Antigen Hep Bs Antibody Hep B Core Total Ab Hep B Core IgM Ab Hepatitis Be Antibody Hepatitis Be Antigen 12/26/19 12:17 WBC RBC Hgb Hct MCV MCH MCHC RDW Plt Count MPV Absolute Neuts (auto) Neutrophils % Lymphocytes % Monocytes % Eosinophils % Basophils % Nucleated RBC % Sodium Potassium Chloride Carbon Dioxide Anion Gap BUN Creatinine Est GFR (CKD-EPI)AfAm Est GFR (CKD-EPI)NonAf POC Glucometer 100 Random Glucose Calcium Total Bilirubin AST ALT Alkaline Phosphatase Total Protein Albumin Hep A IgM Ab Confirm Hepatitis A Ab Total Hep Bs Antigen Hep Bs Antibody Hep B Core Total Ab Hep B Core IgM Ab Hepatitis Be Antibody Hepatitis Be Antigen Home Medications Medication Instructions Recorded Amox-Tr/K Cl [Augmentin 500-125mg 1 tab PO BID@0800,1730 #9 tablet 12/26/19 Tablet -] ASSESSMENT AND PLAN: 39 year old female with no medical history, presented to the ED with nausea and vomiting s/p failed out-patient Abx treatment for infected Bartholin's Gland Abscess. 1. Sepsis (leukocytosis, tachycardia) secondary to Bartholin's gland abscess s/p recent I&D by STUDY MANAGER Unasyn transitioned to Augmentin - to complete total 7 days. STUDY MANAGER follow up. 2. Acute kidney injury - likely ATN sec to poutpatient course of Cipro + NSAIDs. Imprved with IV hydration Nephrology out-patient follow up. Medically optimized for discharge with STUDY MANAGER and Nephrology follow ups.
== END 2019-12-26 14:11 | disposition home or self-care (01) | DRG 720 ==
LOC: JER 17:01 → JERBED 22:04 → J7W 12-23 22:25
PROVIDERS: ADMIT Internal Medicine
DX: A41.9 Sepsis, unspecified organism (principal); N17.0 Acute kidney failure with tubular necrosis; N75.1 Abscess of Bartholin's gland; D72.829 Elevated white blood cell count, unspecified; R11.10 Vomiting, unspecified; R00.0 Tachycardia, unspecified; N75.0 Cyst of Bartholin's gland; N18.9 Chronic kidney disease, unspecified; E86.0 Dehydration; E87.2 Acidosis; F17.210 Nicotine dependence, cigarettes, uncomplicated
CPT/HCPCS: 36415; 74176-TC; 74177-TC; 76700-TC; 76705-TC; 80048; 80053; 81003; 82962; 83735; 84100; 84300; 84703; 85025; 86704; 86706; 86707; 86708; 86709; 87086; 87205; 87340; 93005; 93010; 99285-25; G0480; J0131; J7030; Q9967

== ENCOUNTER 2020-09-20 08:25 | Emergency (ER) | payer OTHER ==
[2020-09-20 08:34] VITALS: BP 123/79; PULSE 108; TEMP 98; BMI 28.3
== END 2020-09-20 09:43 | disposition home or self-care (01) ==
LOC: JER 08:25
DX: N75.0 Cyst of Bartholin's gland (principal)
CPT/HCPCS: 87070; 87076; 87186; 87205; 99283-25

== ENCOUNTER 2022-01-12 02:30 | Observation (INO) | payer OTHER ==
[2022-01-12] MEDS ORDERED: morphine SULFATE IMMEDIATE RELEASE 30 MG TAB PO PRN (02:45)
[2022-01-12] MEDS ORDERED: KETOROLAC TROMETHAMINE 60 MG/2 ML VIAL IM ONE (02:45)
[2022-01-12] MEDS ORDERED: ONDANSETRON 4 MG/2 ML VIAL IVPUSH ONE (02:47)
[2022-01-12] MEDS ORDERED: KETOROLAC TROMETHAMINE 60 MG/2 ML VIAL ONE (03:01)
[2022-01-12] MEDS ORDERED: ONDANSETRON 4 MG/2 ML VIAL ONE (03:01)
[2022-01-12] MEDS ORDERED: morphine SULFATE IMMEDIATE RELEASE 30 MG TAB ONE (03:01)
[2022-01-12 03:21] LABS: BASO % 0.7 % (0-2.0); EOS % 0.9 % (0-4.5); HEMATOCRIT 36.1 % (32.4-45.2); HEMOGLOBIN 12.2 GM/dL (10.7-15.3); LYMPH % 16.7 % (8-40); MCH 26.8 pg (25.7-33.7); MCHC 33.8 g/dl (32.0-36.0); MEAN CELL VOLUME 79.4 fl (80-96); MEAN PLT VOLUME 7.8 fl (7.5-11.1); MONO % 9.2 % (3.8-10.2); NEUT % 72.5 % (42.8-82.8); PLATELET COUNT 337 10^3/uL (134-434); RBC 4.54 M/mm3 (3.60-5.2); RDW 15.9 % (11.6-15.6); WHITE BLOOD COUNT 8.6 K/mm3 (4.0-10.0)
[2022-01-12 03:23] LABS: PH,URINE 5.5 (5.0-8.0); URINE APPEARANCE Cloudy; URINE BILIRUBIN 2+ (NEGATIVE); URINE COLOR Dark yellow; URINE GLUCOSE (UA) Trace (NEGATIVE); URINE KETONE 1+ (NEGATIVE); URINE LEUK ESTERASE Negative (NEGATIVE); URINE NITRITE Negative (NEGATIVE); URINE PROTEIN 1+ (NEGATIVE); URINE UROBILINOGEN >=8.0 E.U./dl mg/dL (0.2-1.0)
[2022-01-12 03:35] LABS: HCG,QUALITATIVE URINE Negative
[2022-01-12 03:42] LABS: CALCIUM 8.9 mg/dL (8.5-10.1)
[2022-01-12 03:43] LABS: ALBUMIN 3.6 g/dl (3.4-5.0); BLOOD UREA NITROGEN 15.3 mg/dL (7-18)
[2022-01-12 03:46] LABS: CREATININE 0.9 mg/dL (0.55-1.3)
[2022-01-12 03:47] LABS: EPI CELLS 131.5 /uL (0-25.1); HYALINE CASTS 12.8 /uL (0-3.1); TOT PROT 6.8 g/dl (6.4-8.2); URINE BACTERIA 396.7 /uL (0-1359); URINE RBC 688.7 /uL (0-23.9)
[2022-01-12] MEDS ORDERED: LACTATED RINGERS SOLUTION 1000 ML INFUS.BAG IV ONE (03:48)
[2022-01-12 03:55] LABS: URINE CRYSTALS NONE SEEN /hpf
[2022-01-12] MEDS ORDERED: LACTATED RINGERS SOLUTION 1,000 ML IV SCH (06:00)
[2022-01-12] MEDS ORDERED: FAMOTIDINE 20 MG/50 ML IVPB 20 MG/50 ML MG IVPB ONE ×2 (06:42→06:52)
[2022-01-12] MEDS: LACTATED RINGERS SOLUTION 1,000 ML IV SCH ×2 (07:01→16:07)
[2022-01-12] MEDS: morphine SULFATE 4 MG/ML VIAL IVPUSH PRN ×2 (07:40→12:22)
[2022-01-12] MEDS ORDERED: morphine SULFATE 4 MG/ML VIAL ONE (07:42)
[2022-01-12 10:22] VITALS: BMI 28.0
[2022-01-12 10:32] LABS: BASO % 0.7 % (0-2.0); EOS % 0.3 % (0-4.5); HEMATOCRIT 32.4 % (32.4-45.2); HEMOGLOBIN 10.8 GM/dL (10.7-15.3); LYMPH % 25.2 % (8-40); MCH 26.7 pg (25.7-33.7); MCHC 33.4 g/dl (32.0-36.0); MEAN PLT VOLUME 7.8 fl (7.5-11.1); MONO % 8.5 % (3.8-10.2); NEUT % 65.3 % (42.8-82.8); PLATELET COUNT 293 10^3/uL (134-434); RBC 4.06 M/mm3 (3.60-5.2); RDW 15.8 % (11.6-15.6); WHITE BLOOD COUNT 7.2 K/mm3 (4.0-10.0)
[2022-01-12 10:54] LABS: CALCIUM 8.2 mg/dL (8.5-10.1)
[2022-01-12 10:55] LABS: ALBUMIN 3.1 g/dl (3.4-5.0); BLOOD UREA NITROGEN 11.3 mg/dL (7-18)
[2022-01-12 10:57] LABS: BILIRUBIN,DIRECT 0.9 mg/dL (0.0-0.2)
[2022-01-12 10:58] LABS: CREATININE 0.7 mg/dL (0.55-1.3)
[2022-01-12 10:59] LABS: BILIRUBIN,TOTAL 1.7 mg/dL (0.2-1); TOT PROT 5.8 g/dl (6.4-8.2)
[2022-01-12 11:04] LABS: INR 1.15 (0.83-1.09); PROTHROMBIN TIME (PATIENT) 13.3 SEC (9.7-13.0)
[2022-01-12] MEDS ORDERED: morphine SULFATE 4 MG/ML VIAL IVPUSH PRN (16:36)
[2022-01-12] MEDS: ONDANSETRON 4 MG/2 ML VIAL IVPUSH PRN (16:59)
[2022-01-12] MEDS: FAMOTIDINE 20 MG/50 ML IVPB 20 MG/50 ML MG IVPB SCH (22:07)
[2022-01-13] MEDS: LACTATED RINGERS SOLUTION 1,000 ML IV SCH ×2 (00:48→08:12)
[2022-01-13] MEDS ORDERED: DEXTROSE 5%-WATER - 50 ML IVPB ONE (07:41)
[2022-01-13] MEDS ORDERED: PIPERACILLIN/TAZOBACTAM 3.375 GM VIAL IVPB ONE (07:41)
[2022-01-13] MEDS ORDERED: PIPERACILLIN/TAZOB 3.375 GM 3.375 GM in DEXTROSE 5%-WATER - 50 ML IVPB SCH (07:45)
[2022-01-13] MEDS ORDERED: INDOMETHACIN 50 MG CAPSULE PO ONE (08:00)
[2022-01-13] MEDS: FAMOTIDINE 20 MG/50 ML IVPB 20 MG/50 ML MG IVPB SCH ×2 (09:15→21:56)
[2022-01-13 10:07] LABS: BASO % 0.8 % (0-2.0); EOS % 1.5 % (0-4.5); HEMOGLOBIN 10.4 GM/dL (10.7-15.3); LYMPH % 40.8 % (8-40); MCH 26.9 pg (25.7-33.7); MCHC 33.4 g/dl (32.0-36.0); MEAN CELL VOLUME 80.5 fl (80-96); MONO % 9.1 % (3.8-10.2); NEUT % 47.8 % (42.8-82.8); PLATELET COUNT 283 10^3/uL (134-434); RBC 3.86 M/mm3 (3.60-5.2); RDW 15.8 % (11.6-15.6); WHITE BLOOD COUNT 7.1 K/mm3 (4.0-10.0)
[2022-01-13 10:17] LABS: INR 1.1 (0.83-1.09); PROTHROMBIN TIME (PATIENT) 12.7 SEC (9.7-13.0)
[2022-01-13 10:18] LABS: ACTIVATED PTT 30.8 SECONDS (25.2-36.5)
[2022-01-13 10:48] LABS: BLOOD UREA NITROGEN 10.5 mg/dL (7-18)
[2022-01-13 10:50] LABS: CALCIUM 8.4 mg/dL (8.5-10.1)
[2022-01-13 10:51] LABS: CREATININE 0.6 mg/dL (0.55-1.3); PHOSPHOROUS 2.4 mg/dL (2.5-4.9)
[2022-01-13 10:52] LABS: BILIRUBIN,TOTAL 0.6 mg/dL (0.2-1); TOT PROT 5.7 g/dl (6.4-8.2)
[2022-01-13 11:05] LABS: CHOLESTEROL 159 mg/dL (50-200)
[2022-01-13 11:06] LABS: LDL CHOLESTEROL (ONLY SJRH) 108 mg/dL (5-100); TRIGLYCERIDES 130 mg/dL (0-150)
[2022-01-13 11:10] LABS: HDL CHOLESTEROL 34 mg/dL (40-60)
[2022-01-13] MEDS ORDERED: NAPH,MB-DB/K PH,MBDB POWDER PACKET PO ONE (11:15)
[2022-01-13] MEDS: PIPERACILLIN/TAZOB 3.375 GM 3.375 GM in DEXTROSE 5%-WATER - 50 ML IVPB SCH ×2 (12:23→12:24)
[2022-01-13] MEDS: ONDANSETRON 4 MG/2 ML VIAL IVPUSH PRN (21:55)
[2022-01-14 07:33] LABS: HEMATOCRIT 34.3 % (32.4-45.2); HEMOGLOBIN 11.6 GM/dL (10.7-15.3); MCHC 33.8 g/dl (32.0-36.0); MEAN PLT VOLUME 8.5 fl (7.5-11.1); PLATELET COUNT 296 10^3/uL (134-434); RBC 4.28 M/mm3 (3.60-5.2)
[2022-01-14 08:16] LABS: BLOOD UREA NITROGEN 8.2 mg/dL (7-18)
[2022-01-14 08:18] LABS: CALCIUM 8.5 mg/dL (8.5-10.1)
[2022-01-14 08:19] LABS: ALBUMIN 3.1 g/dl (3.4-5.0)
[2022-01-14 08:23] LABS: BILIRUBIN,TOTAL 0.8 mg/dL (0.2-1)
[2022-01-14 08:24] LABS: CREATININE 0.7 mg/dL (0.55-1.3); TOT PROT 6.4 g/dl (6.4-8.2)
[2022-01-14] MEDS: FAMOTIDINE 20 MG/50 ML IVPB 20 MG/50 ML MG IVPB SCH ×2 (10:03→21:39)
[2022-01-14] MEDS ORDERED: BUPIVACAINE HCL/PF 0.5% (5MG/ML) 10 ML VIAL ONE ×2 (10:12→11:59)
[2022-01-14] MEDS ORDERED: LIDOCAINE HCL/PF 2% SDV 5ML VIAL ONE (10:14)
[2022-01-14] MEDS ORDERED: PROPOFOL 20 ML ONE (10:15)
[2022-01-14] MEDS ORDERED: MIDAZOLAM HCL 2 MG/2 ML SINGLE DOSE VIAL ONE (10:15)
[2022-01-14] MEDS ORDERED: ROCURONIUM BROMIDE 50 MG/5 ML SYRINGE ONE (10:15)
[2022-01-14] MEDS ORDERED: ONDANSETRON 4 MG/2 ML VIAL IVPUSH PRN ×2 (10:29→12:44)
[2022-01-14] MEDS ORDERED: PROMETHAZINE HCL 25 MG/1 ML VIAL IVPUSH PRN ×2 (10:29→12:44)
[2022-01-14] MEDS ORDERED: LACTATED RINGERS SOLUTION 1,000 ML IV SCH ×2 (10:30→12:44)
[2022-01-14] MEDS ORDERED: ceFAZolin SODIUM 1 GM VIAL IVPB ONE (10:55)
[2022-01-14] MEDS ORDERED: BUPIVACAINE HCL/PF 0.5% (5 MG/ML) 30 ML VIAL IJ ONE (11:06)
[2022-01-14] MEDS ORDERED: HYDROmorphone HCl 2 MG/ML VIAL ONE (11:12)
[2022-01-14] MEDS ORDERED: NEOSTIGMINE METHYLSULFATE 0.5 MG/ML - 10 ML MDV ONE (11:58)
[2022-01-14] MEDS ORDERED: ACETAMINOPHEN 1000 MG/100 ML BAG IVPB PRN ×2 (12:31→19:00)
[2022-01-14] MEDS ORDERED: ACETAMINOPHEN INJECTION 100 ML IVPB ONE (12:37)
[2022-01-14] MEDS ORDERED: PROMETHAZINE HCL 25 MG/1 ML VIAL ONE (12:37)
[2022-01-14] MEDS ORDERED: IBUPROFEN 600 MG TABLET (FP) PO PRN ×2 (17:48→20:00)
[2022-01-14] MEDS: oxyCODONE HCL 5 MG TABLET PO PRN (20:37)
[2022-01-15 00:26] VITALS: BP 105/57; PULSE 80; TEMP 99.3
[2022-01-15] MEDS: oxyCODONE HCL 5 MG TABLET PO PRN ×2 (02:10→08:44)
[2022-01-15 06:40] LABS: CALCIUM 8.3 mg/dL (8.5-10.1)
[2022-01-15 06:41] LABS: BLOOD UREA NITROGEN 9.8 mg/dL (7-18)
[2022-01-15 06:44] LABS: CREATININE 0.7 mg/dL (0.55-1.3)
[2022-01-15 06:45] LABS: BILIRUBIN,TOTAL 0.9 mg/dL (0.2-1)
[2022-01-15 06:46] LABS: TOT PROT 5.6 g/dl (6.4-8.2)
[2022-01-15] MEDS ORDERED: POTASSIUM CHLORIDE TABS 20 MEQ TABLET.ER (FP) PO ONE (06:59)
[2022-01-15 07:10] LABS: BASO % 0.6 % (0-2.0); EOS % 0.4 % (0-4.5); HEMATOCRIT 30.8 % (32.4-45.2); HEMOGLOBIN 10.6 GM/dL (10.7-15.3); LYMPH % 27.9 % (8-40); MCH 27.4 pg (25.7-33.7); MCHC 34.5 g/dl (32.0-36.0); MEAN CELL VOLUME 79.4 fl (80-96); MEAN PLT VOLUME 8.5 fl (7.5-11.1); MONO % 8.5 % (3.8-10.2); NEUT % 62.6 % (42.8-82.8); PLATELET COUNT 290 10^3/uL (134-434); RBC 3.89 M/mm3 (3.60-5.2); RDW 15.8 % (11.6-15.6); WHITE BLOOD COUNT 10.9 K/mm3 (4.0-10.0)
[2022-01-15 07:30] LABS: MAGNESIUM 2.1 mg/dL (1.8-2.4)
[2022-01-15 07:34] LABS: PHOSPHOROUS 3.4 mg/dL (2.5-4.9)
[2022-01-15] MEDS: FAMOTIDINE 20 MG/50 ML IVPB 20 MG/50 ML MG IVPB SCH (09:34)
== END 2022-01-15 13:45 | disposition home or self-care (01) ==
LOC: JER 02:30 → JERBED 04:55 → INTOOBSV 04:55 → UNDOADMOB 04:55 → JERBED 09:54 → J7W 09:54 → JERBED 16:00
PROVIDERS: ADMIT Internal Medicine; ATTEND Internal Medicine
PROC: 0FT44ZZ Resection of Gallbladder, Percutaneous Endoscopic Approach (ICD-10-PCS; principal; 2022-01-12)
PROC: 3E03329 Introduction of Other Anti-infective into Peripheral Vein, Percutaneous Approach (ICD-10-PCS; 2022-01-12)
DX: K80.10 Calculus of gallbladder with chronic cholecystitis without obstruction (principal); K80.50 Calculus of bile duct without cholangitis or cholecystitis without obstruction; F17.210 Nicotine dependence, cigarettes, uncomplicated; R94.5 Abnormal results of liver function studies; E80.6 Other disorders of bilirubin metabolism; N39.0 Urinary tract infection, site not specified; Z80.0 Family history of malignant neoplasm of digestive organs; Z20.822 Contact with and (suspected) exposure to COVID-19
CPT/HCPCS: 36415; 74176-TC; 74181-TC; 76700-TC; 80048; 80053; 80061; 80076; 81003; 83036; 83690; 83735; 84100; 84703; 85025; 85027; 85610; 85730; 86850; 86900; 86901; 87086; 88304-TC; 93005; 93010; 94010; 94760; 96374; 99285-25; C9803-CS; G0378; U0003; U0005